=== PATIENT | male | born 1940 | race Caucasian/White ===

== ENCOUNTER 2016-08-23 06:20 | Day surgery (SDC) | payer MEDICARE ==
[~2016-08-23] VITALS: Ht 182.9 cm; Wt 104.8 kg
[~2016-08-23 06:20] MED LIST: ATEN-100 PO; COUM2.5T PO; GABA300C3 PO; LASI20TA PO; LISI-366 PO; NORC7.5T PO; NOVONP2 SQ; REST30CA PO; SIMV20 PO; Z.0.COMMODE-3:1; Z.0.CPM; Z.0.WALKERFRONT
[2016-08-23] MEDS ORDERED: SODIUM CHLOR 0.9% 1000 ML INJ 1,000 ML IV SCH ×2 (06:45→09:51)
[2016-08-23] MEDS ORDERED: SODIUM CHLORIDE 0.9% FLUSH 5 ML FLUSH IV FLUSH PRN (06:45)
[2016-08-23 07:03] VITALS: BP 173/74; PULSE 59; RESP 18; TEMP 98.4; O2SAT 99
[2016-08-23] MEDS ORDERED: NOVONP2 SQ (07:04)
[2016-08-23] MEDS ORDERED: FURO20TA PO (07:04)
[2016-08-23] MEDS ORDERED: ATEN25TA PO (07:04)
[2016-08-23] MEDS ORDERED: TEMA30CA PO (07:04)
[2016-08-23] MEDS ORDERED: SIMV20TA PO (07:04)
[2016-08-23] MEDS ORDERED: LISI40TA PO (07:05)
[2016-08-23] MEDS ORDERED: NITROGLYCERIN INJ 5 ML ONE (08:36)
[2016-08-23] MEDS ORDERED: HEPARIN-NS/PF INJ 500 ML ONE (08:36)
[2016-08-23] MEDS ORDERED: MIDAZOLAM HCL 2 MG/2 ML VIAL ONE ×3 (08:36→09:31)
[2016-08-23] MEDS ORDERED: HEPARIN SODIUM - IV 10,000 UNITS/10 ML VIAL ONE (08:36)
[2016-08-23] MEDS ORDERED: SODIUM CHLORIDE 0.9% FLUSH 5 ML FLUSH IV FLUSH SCH (09:00)
[2016-08-23] MEDS ORDERED: oxyCODONE/ACETAMINOPHEN 5 MG/325 MG TAB PO PRN ×2 (10:00)
[2016-08-23] MEDS ORDERED: LORazepam 2 MG/ML VIAL IV PRN (10:00)
[2016-08-23] MEDS ORDERED: ATROPINE SULFATE 1 MG/ML VIAL IV PRN (10:00)
[2016-08-23] MEDS ORDERED: IOHEXOL 350 MG/ML 100 ML BTL (for Cath Lab) OTHER ONE (10:00)
[2016-08-23] MEDS ORDERED: LIDOCAINE HCL 1% 50 ML VIAL INFIL PRN (10:00)
[2016-08-23] MEDS ORDERED: METOCLOPRAMIDE HCL 10 MG/2 ML VIAL IV PRN (10:00)
[2016-08-23] MEDS ORDERED: BACITRACIN OINT 0.9 GM PKT TOP ONE (10:00)
[2016-08-23] MEDS ORDERED: ONDANSETRON HCL 4 MG/2 ML VIAL IV PRN (10:00)
[2016-08-23] MEDS ORDERED: MISC INFORMATION XX ONE ×2 (10:00)
[2016-08-23] MEDS ORDERED: SODIUM CHLOR 0.9% 250 ML INJ 250 ML IV PRN (10:00)
--- NOTE | 2016-08-23 10:40 | MA ---
cc: SIM ARELLANO MD, SLOBODAN MD DATE: 08/23/2016 PROCEDURE PERFORMED 1. Descending aortography. 2. Bilateral lower extremity peripheral angiography with first, second, third order visualization and interpretation. 3. Intravascular ultrasound assessment of the right superficial femoral artery. METHOD The risks, benefits and alternatives were discussed with the patient. The patient understood and consented to the procedure. The patient was brought into the catheterization lab and placed on the catheterization table. The left groin was prepped and draped in a sterile fashion. The left groin was anesthetized with 2% lidocaine. The left common femoral artery was cannulated. A 5-[place], 11 cm sheath was placed without difficulty. DESCENDING AORTOGRAPHY Descending aortography was performed in anterior and posterior view using a 24 cc contrast injection and good opacification. Descending aortography revealed a large infrarenal aortic aneurysm. The right renal artery has a 75% proximal stenosis. The left renal artery has minor luminal irregularities. PERIPHERAL ANGIOGRAPHY 1. The right common iliac artery has 50% stenosis in the proximal segment. There is a stent present with in-stent restenosis. The external and internal iliac arteries are both tortuous but have only minor luminal irregularities. The right common femoral and profunda arteries are widely patent. The right superficial femoral artery is patent up to the mid to distal segment. The mid to distal segment is heavily calcified. There is a 90% calcific stenosis. There are three small fractured stents present in the midsegment which are intraluminal in appearance. They are very small caliber size and likely represented from embolization from another vessel more proximally or intended for another vessel. The popliteal has minor luminal irregularities. The posterior tibial is occluded. The peroneal has minor luminal irregularities. The anterior tibial has a 90% stenosis proximally. 2. The left common iliac artery has a stent present which appears to be patent. The left internal and external iliacs have minor luminal irregularities. The left common femoral profunda artery has minor luminal irregularities. The left superficial femoral artery has some moderate calcific disease in the distal segment but does not appear to be obstructive. The popliteal is patent, not well-visualized due to prosthesis. The anterior tibial and peroneal vessels appear to be patent. The posterior tibial is occluded. INTRAVASCULAR ULTRASOUND It was not entirely clear what was in the mid right superficial femoral artery and if it was truly intraluminal, therefore we decided to perform intravascular ultrasound. A 0.035 inch, 260 cm stiff angle Glidewire was navigated through a RIM catheter down into the right superficial femoral artery. The RIM catheter was removed. A 6-[place], 45 cm Load DynamiXumo Destination Fisher sheath was then advanced up-and-over the arch into the right superficial femoral artery. A 0.035 inch Trailblazer catheter was then advanced behind it. We were able to navigate the Glidewire down into the distal anterior tibial vessel. A 0.014 inch, 335 cm Viper wire was then navigated down into the distal anterior tibial vessel and the Trailblazer catheter removed. An intravascular ultrasound catheter was then advanced into the right superficial femoral artery. It did appear that there was an intraluminal stent which was nonobstructive in the midsegment of the superficial femoral artery. In the mid to distal segment there was heavy calcium present with a 90% stenosis. The intravascular ultrasound catheter was then removed. The wire was removed. The sheath was then exchanged for a short 11 cm sheath sewn into place to be removed with manual hemostasis. CONCLUSIONS 1. Infrarenal descending aortic aneurysm. 2. Moderate in-stent restenosis within the right common iliac artery stent. The left common iliac artery stent appears to be widely patent. 3. Severe right mid to distal superficial femoral artery stenosis with an apparent small fractured emboli stent. 4. Bilateral infrapopliteal disease which includes occluded posterior tibial arteries. Severe anterior tibial artery stenosis proximally. PLAN We asked Dr. Aubrey Voss, vascular surgeon, for his direct input on the case. Obviously the infrarenal aortic aneurysm will need to be addressed. After discussion we elected not to proceed with any endovascular approach and we will proceed with surgical bypass of the right lower extremity and subsequently address the abdominal aortic aneurysm. Anticipate discharge later today and will put a formal consult in for Dr. Voss. MD PHONG An/ABHISHEK /10:03 AM /10:20 AM
[2016-08-23] MEDS ORDERED: cloNIDine HCL 0.2 MG TAB PO PRN (13:00)
--- NOTE | 2016-08-23 14:52 | MB ---
cc: AUBREY OSBORNE MD DATE OF CONSULTATION: 08/23/2016 REASON FOR CONSULTATION Retained foreign bodies in the right superficial femoral artery. HISTORY OF PRESENT DISEASE This 76-year-old male with multiple medical problems and multiple admissions to this hospital was apparently undergoing angiogram with runoff by Dr. Aly Costello, when I was called emergently to see the patient in the laborer beam house. On the angiogram the patient was found to have an abdominal aortic aneurysm which was not known before apparently and in the runoff of the right leg in the SFA they are arteriosclerotic changes but also some sort of structures that look like small pieces of stents, likely embolized from prior proximal site, hence the urgency of the call. I reviewed the x-rays and then consulted with the patient. The past medical history is complex. PAST MEDICAL/SURGICAL HISTORY 1. Diabetes mellitus. 2. Hyperlipidemia. 3. Hypertension. 4. Laminectomy with Dr. Gonsales, redo of the same. 5. Left knee replacement and redo. 6. Multiple visits to the emergency room. SOCIAL HISTORY The patient denies smoking or drinking. MEDICATIONS He takes several medications which can be found in the record. ALLERGIES No allergies. Language is somewhat of a barrier, but the patient just does not have an organized mode of thinking in order to present his history, so the majority of it is obtained from the old records. PHYSICAL EXAMINATION GENERAL: A 76-year-old male in no acute distress. HEENT: Normocephalic. No trauma to the head. Pupils equally reactive. Extraocular muscles intact. NECK: Bilateral carotid pulses. No bruits. CHEST: Bilateral breath sounds. HEART: Regular rhythm. ABDOMEN: Soft. Active bowel sounds. The aneurysm is actually not palpable. It probably measures 4-5 cm from what I could tell from the angiogram, however, it could not be palpated. EXTREMITIES: The patient has bilateral femoral pulses on palpation. He has popliteal pulses, strong on the left to palpation, on the right by Doppler. Dorsalis pedis and posterior tibial is strong by Doppler. There is a small necrotic area on the top of the second toe on the right. Feet are warm. Capillary refill is normal. IMPRESSION AND RECOMMENDATIONS This gentleman has an abdominal aortic aneurysm which at this point would not be amenable to endovascular repair because he has bilateral iliac stents which clearly preclude introduction of the aortobifemoral graft but also precluded the pulling down of the Y-legs of the endovascular graft. In addition the aneurysm is only about 4 cm in diameter and does not require any treatment at this time. As far as his distal flow is concerned the patient has pretty clean vessels proximally but he does have significant distal disease in the adductor canal and there in the right SFA with some foreign body looking elements, possibly pieces of some stent. At this point this is not causing any blood flow abnormality or is not hemodynamically significant. I will do a CTA with a runoff and then go from there. If the distal narrowing is significant then patient will benefit room balloon angioplasty and placement of the stent and near future I thank you very much for the referral. Aubrey CARRILLO /2:15 PM /2:40 PM MOE
== END 2016-08-23 18:20 | disposition home or self-care (01) ==
LOC: HDOC 06:20 → HDIC 06:21 → HDOC 18:20
PROVIDERS: ATTEND Internal Medicine
DX: I73.9 Peripheral vascular disease, unspecified (principal); I77.1 Stricture of artery; I71.4 Abdominal aortic aneurysm, without rupture; E11.9 Type 2 diabetes mellitus without complications; E78.5 Hyperlipidemia, unspecified; I10 Essential (primary) hypertension; Z79.4 Long term (current) use of insulin
CPT/HCPCS: 36246; 75625; 75716; 85002; 85347; 86850; 86900; 86901; C1751; C1753; C1769; C1893; J1644; J2250; J3010; Q9967

== ENCOUNTER 2016-08-28 08:24 | Inpatient (IN) | payer MEDICARE ==
[2016-08-28] VITALS (7 sets, daily range): BP systolic 120–171; BP diastolic 61–87; PULSE 66–75; RESP 16–20; TEMP 97.1–98.3; O2SAT 97–100
[~2016-08-28] VITALS: Ht 185.4 cm; Wt 105.0 kg
[~2016-08-28 08:24] MED LIST changes: -ATEN-100 PO; +ATEN25TA PO; -COUM2.5T PO; +FURO20TA PO; -GABA300C3 PO; -LASI20TA PO; -LISI-366 PO; +LISI40TA PO; -NORC7.5T PO; -REST30CA PO; -SIMV20 PO; +SIMV20TA PO; +TEMA30CA PO; -Z.0.COMMODE-3:1; -Z.0.CPM; -Z.0.WALKERFRONT
--- NOTE | 2016-08-28 09:42 | PD ---
HPI Chief Complaint: Pain: Acute or Chronic Time Seen by Provider: 09:08 Travel History International Travel<30 days: No Contact w/Intl Traveler<30days: No Traveled to known affect area: No History of Present Illness HPI This is a 76-year-old male with a history of peripheral vascular disease, diabetes mellitus, hypertension, hyperlipidemia, who presents here at the request of his rat culturist for admission. The patient has had a worsening necrotic right second toe for which she was seen by his rat culturist. She was concerned there may be osteomyelitis and requested he be admitted to the hospital and have a consult with her partner Dr. Olivier. The patient denies any fevers, chills. The patient really does not report a lot of pain in his toe. PFSH Past Medical History Arthritis: Yes Blood Disorders: No Cancer: Yes (prostate) Cardiovascular Problems: No High Cholesterol: Yes Chest Pain: No Diabetes: Yes Patient Takes Glucophage: No Endocrine: Yes Gastrointestinal Disorders: No Glaucoma: No Genitourinary: Yes (hx of prostate cancer) Hepatitis: No Hiatal Hernia: No Hypertension: Yes Immune Disorder: No Implanted Vascular Access Dvce: Yes Medical other: Yes (INCREASED CHOLESTROL, ARTHRITIS, LOWER BACK PROBLEMS) Musculoskeletal: Yes (arthritis) Neurologic: No Psychiatric: No Reproductive: No Respiratory: No Integumentary: No Radiation Therapy: Yes (SEED IMPLANT) Thyroid Disease: No Past Surgical History Abdominal Surgery: No Body Medical Devices: PENILE IMPLANT Cardiac Surgery: No Ear Surgery: No Endocrine Surgery: No Eye Surgery: Yes (VEE CATARACT SX) Genitourinary Surgery: Yes (SEED IMPLANT, PENILE IMPLANT) Gynecologic Surgery: No Joint Replacement: Yes (left knee replacement) Neurologic Surgery: No Oral Surgery: No Pacemaker: No Thoracic Surgery: No Other Surgery: Yes (LEFT KNEE) Social History Alcohol Use: No Tobacco Use: No Substance Use: No Allergies-Medications (Allergen,Severity, Reaction): Coded Allergies: No Known Allergies (Verified , 08/28/16) Reported Meds & Prescriptions Reported Meds & Active Scripts Active Reported Lisinopril 40 Mg Tab 40 Mg PO DAILY Novolin N Inj (Insulin Human NPH) 1,000 Unit/10 Ml Vial 25 Units SQ BID Simvastatin 20 Mg Tab 20 Mg PO DAILY Atenolol 25 Mg Tab 25 Mg PO DAILY Review of Systems Except as stated in HPI: all other systems reviewed are Neg General / Constitutional: No: Fever, Chills HENT: No: Headaches, Lightheadedness Cardiovascular: No: Chest Pain or Discomfort, Palpitations Respiratory: No: Cough, Shortness of Breath Gastrointestinal: No: Nausea, Vomiting, Abdominal Pain Genitourinary: No: Frequency, Dysuria Musculoskeletal: Positive: Pain (black coloration to right second distal toe), No: Edema Skin: Positive Lesions (right distal toe discoloration) Neurologic: No: Weakness, Dizziness Endocrine: No: Polyuria, Polydipsia Physical Exam Narrative GENERAL: Well-nourished, well-developed patient resting comfortably on the stretcher. SKIN: Warm and dry. HEAD: Normocephalic/atraumatic. EYES: No scleral icterus. No injection or drainage. NECK: Supple, trachea midline. CARDIOVASCULAR: Regular rate and rhythm without murmurs, gallops, or rubs. RESPIRATORY: Breath sounds equal bilaterally. No accessory muscle use. GASTROINTESTINAL: Abdomen soft, non-tender, nondistended. MUSCULOSKELETAL: On examination patient's right foot, he has necrosis and dried ulceration on the distal tip of his right second toe. Cap refill is delayed at 3 seconds on his great toe. Left foot shows no evidence of ulcerations or lesions at this time. NEUROLOGICAL: Awake and alert. Cranial nerves II through XII intact. Motor grossly within normal limits. Five out of 5 muscle strength in all muscle groups. Normal speech. Data Data Last Documented VS Vital Signs Date Time Temp Pulse Resp B/P Pulse Ox O2 Delivery O2 Flow Rate FiO2 08/28/16 09:38 18 98 Room Air 08/28/16 08:50 75 08/28/16 08:50 98.3 120/65 Orders Complete Blood Count With Diff (08/28/16 09:30) Comprehensive Metabolic Panel (08/28/16 09:30) Prothrombin Time / Inr (Pt) (08/28/16 09:30) Act Partial Throm Time (Ptt) (08/28/16 09:30) Westergren Sedimentation Rate (08/28/16 09:30) Iv Access Insert/Monitor (08/28/16 09:30) Ecg Monitoring (08/28/16 09:30) Oximetry (08/28/16 09:30) Consult Podiatry (08/28/16 ) (Hub Use Only)Inp Phy Cons/Ref (08/28/16 ) Diet 1999 Ada Cons Carb (08/28/16 Breakfast) Admit Order (Ed Use Only) (08/28/16 10:51) Mri Foot W&W/O Contrast (08/28/16 ) Labs Laboratory Tests Test 08/28/16 09:56 White Blood Count 7.0 TH/MM3 Red Blood Count 4.20 MIL/MM3 Hemoglobin 12.9 GM/DL Hematocrit 37.6 % Mean Corpuscular Volume 89.5 FL Mean Corpuscular Hemoglobin 30.6 PG Mean Corpuscular Hemoglobin 34.2 % Concent Red Cell Distribution Width 13.9 % Platelet Count 206 TH/MM3 Mean Platelet Volume 8.9 FL Neutrophils (%) (Auto) 72.1 % Lymphocytes (%) (Auto) 15.8 % Monocytes (%) (Auto) 8.9 % Eosinophils (%) (Auto) 2.6 % Basophils (%) (Auto) 0.6 % Neutrophils # (Auto) 5.0 TH/MM3 Lymphocytes # (Auto) 1.1 TH/MM3 Monocytes # (Auto) 0.6 TH/MM3 Eosinophils # (Auto) 0.2 TH/MM3 Basophils # (Auto) 0.0 TH/MM3 CBC Comment DIFF FINAL Differential Comment Erythrocyte Sedimentation Rate 63 mm/hr Prothrombin Time 11.1 SEC Prothromb Time International 1.0 RATIO Ratio Activated Partial 27.5 SEC Thromboplast Time Sodium Level 140 MEQ/L Potassium Level 5.5 MEQ/L Chloride Level 102 MEQ/L Carbon Dioxide Level 28.6 MEQ/L Anion Gap 9 MEQ/L Blood Urea Nitrogen 24 MG/DL Creatinine 1.05 MG/DL Estimat Glomerular Filtration 68 ML/MIN Rate Random Glucose 39 MG/DL Calcium Level 9.3 MG/DL Total Bilirubin 0.6 MG/DL Aspartate Amino Transf 43 U/L (AST/SGOT) Alanine Aminotransferase 26 U/L (ALT/SGPT) Alkaline Phosphatase 68 U/L Total Protein 7.9 GM/DL Albumin 3.6 GM/DL [facility] Medical Decision Making Medical Screen Exam Complete: Yes Emergency Medical Condition: Yes Differential Diagnosis Osteomyelitis versus ulceration versus dry gangrene versus cellulitis Narrative Course 76 year-old gentleman with history of diabetes mellitus, peripheral vessel disease, who presents from home with a note from Dr. tani nova for admission. The patient has a necrotic right second toe. The concern was for osteomyelitis. Labs and MRI of been ordered here. The patient was very angry that he was not being fed and stated that he was thinking about leaving. I informed him that I would order him a tray however this did mean that if he were to have surgery scheduled today they may not be a little do that. The case is been discussed with Dr. Elpidio Preciado, on-call for healthcare hospitalist, who will be the admitting physician. Diagnosis Primary Impression: right second toe necrosis Additional Impressions: HTN (hypertension) DM (diabetes mellitus) Emory Ordoñez MD Aug 28, 2016 09:42
[2016-08-28 10:15] LABS: BASOPHIL % 0.6 % (0.0-2.0); EOSINOPHIL # 0.2 TH/MM3 (0-0.4); EOSINOPHIL % 2.6 % (0.0-4.0); HEMATOCRIT 37.6 % (39.0-51.0); HEMO FLAGS DIFF FINAL; LYMPH % 15.8 % (9.0-44.0); LYMPHOCYTE # 1.1 TH/MM3 (1.0-4.8); MEAN CELL VOLUME 89.5 FL (80.0-100.0); MEAN CORPUSCULAR HEMOGLOBIN 30.6 PG (27.0-34.0); MEAN CORPUSCULAR HGB CONC 34.2 % (32.0-36.0); MONO % 8.9 % (0.0-8.0); NEUT % 72.1 % (16.0-70.0); PLATELET COUNT 206 TH/MM3 (150-450); RED CELL DISTRIBUTION WIDTH 13.9 % (11.6-17.2)
[2016-08-28 10:25] LABS: APTT (PATIENT) 27.5 SEC (24.3-30.1); PROTHROMBIN TIME - PATIENT 11.1 SEC (9.8-11.6)
[2016-08-28 10:49] LABS: ALKALINE PHOSPHATASE 68 U/L (45-117); ALT (GPT) 26 U/L (12-78); ANION GAP 9 MEQ/L (5-15); AST (GOT) 43 U/L (15-37); BICARBONATE 28.6 MEQ/L (21.0-32.0); BLOOD UREA NITROGEN 24 MG/DL (7-18); CHLORIDE 102 MEQ/L (98-107); GLOMERULAR FILTRATION RATE 68 ML/MIN (>89); SODIUM (NA) 140 MEQ/L (136-145); TOTAL BILIRUBIN ADULT 0.6 MG/DL (0.2-1.0)
[2016-08-28 10:50] LABS: POTASSIUM 5.5 MEQ/L (3.5-5.1)
[2016-08-28] MEDS ORDERED: GADODIAMIDE PF 287 MG/ML 20 ML VIAL (for RAD MRI) IV ONE (11:48)
--- NOTE | 2016-08-28 12:17 | HHI.HP ---
HPI Service [facility] Hospitalists Primary Care Physician Deepak Good MD Admission Diagnosis right necrotic great toe, DM, Hyperlipidemia, HTN, PVD Chief Complaint: Osteomyelitis Travel History International Travel<30 Days: No Contact w/Intl Traveler <30 Da: No Traveled to Known Affected Are: No History of Present Illness Mr. Longo is a 76 y/o male with IDDM with peripheral neuropathy, HTN , hyperlipidemia, peripheral vascular disease, and hx of prostate cancer who presented to the ED at [facility] on 08/28/16 at the request of his ammonium sulfate operator for admission. The patient has had a worsening necrotic right second toe for which she was seen by his ammonium sulfate operator. She was concerned there may be osteomyelitis and requested he be admitted to the hospital and have a consult with her partner Dr. Olivier. Pt had an MRI of the foot in the ED which revealed soft tissue ulceration distally of the second toe with destruction/osteomyelitis of the distal phalanx with focal osteomyelitis involving the head of the second toe middle phalanx as well. Pt was also noted to be hypoglycemic in the ED with blood glucose of 39. This has improved to 105 after food intake. The patient denies any pain, fevers/chills, chest pain, SOB, palpitations, dizziness or weakness. Review of Systems Constitutional: DENIES: Fever, Chills Eyes: DENIES: Vision loss Ears, nose, mouth, throat: DENIES: Hearing loss Respiratory: DENIES: Cough, Shortness of breath Cardiovascular: DENIES: Chest pain, Palpitations Gastrointestinal: DENIES: Abdominal pain, Nausea, Vomiting Genitourinary: DENIES: Hematuria, Dysuria Musculoskeletal: DENIES: Back pain Integumentary: COMPLAINS OF: Abnormal pigmentation Neurologic: DENIES: Headache Psychiatric: DENIES: Confusion Past Family Social History Past Medical History Diabetes mellitus, insulin dependent Peripheral neuropathy Diabetic retinopathy AAA HTN Hyperlipidemia Hx of prostate cancer PVD Chronic back pain Past Surgical History Cataract surgery Left TKA in 2009 Dr Tamayo Left total knee revision in 08/[address] Beach Penile prosthesis Reported Medications - Lisinopril 40 Mg PO DAILY - Novolin N Inj 25 Units SQ BID - Simvastatin 20 Mg PO DAILY - Atenolol 25 Mg PO DAILY ?Lasix 20mg PO DAILY ?Gabapentin 300Mg PO TID ?Hydrocodone-APAP 7.5-325Mg PO TID PRN ?Temazepam 30Mg PO HS PRN Allergies: Coded Allergies: No Known Allergies (Verified , 08/28/16) Family History Noncontributory Social History Denies any tobacco, alcohol or illicit drug use Physical Exam Vital Signs Vital Signs Date Time Temp Pulse Resp B/P Pulse Ox O2 Delivery O2 Flow Rate FiO2 08/28/16 09:38 18 98 Room Air 08/28/16 08:50 75 18 08/28/16 08:50 98.3 71 18 120/65 97 Room Air Physical Exam GENERAL: This is a well-nourished, well-developed patient, in no apparent distress. HEENT: Atraumatic. Normocephalic. No temporal or scalp tenderness. No scleral icterus. Airway patent. NECK: Trachea midline, supple, nontender. CARDIO: Regular. RESP: CTA bilaterally. No wheezes, rales, or rhonchi. ABD: +BS, soft, non-tender, nondistended. EXT: Extremities without clubbing, cyanosis, or edema. right 2nd distal toe necrotic. NEURO: Awake and alert. Motor and sensory grossly within normal limits. Normal speech. Laboratory Laboratory Tests Test 08/28/16 09:56 White Blood Count 7.0 Red Blood Count 4.20 Hemoglobin 12.9 Hematocrit 37.6 Mean Corpuscular Volume 89.5 Mean Corpuscular Hemoglobin 30.6 Mean Corpuscular Hemoglobin 34.2 Concent Red Cell Distribution Width 13.9 Platelet Count 206 Mean Platelet Volume 8.9 Neutrophils (%) (Auto) 72.1 Lymphocytes (%) (Auto) 15.8 Monocytes (%) (Auto) 8.9 Eosinophils (%) (Auto) 2.6 Basophils (%) (Auto) 0.6 Neutrophils # (Auto) 5.0 Lymphocytes # (Auto) 1.1 Monocytes # (Auto) 0.6 Eosinophils # (Auto) 0.2 Basophils # (Auto) 0.0 CBC Comment DIFF FINAL Differential Comment Erythrocyte Sedimentation Rate 63 Prothrombin Time 11.1 Prothromb Time International 1.0 Ratio Activated Partial 27.5 Thromboplast Time Sodium Level 140 Potassium Level 5.5 Chloride Level 102 Carbon Dioxide Level 28.6 Anion Gap 9 Blood Urea Nitrogen 24 Creatinine 1.05 Estimat Glomerular Filtration 68 Rate Random Glucose 39 Calcium Level 9.3 Total Bilirubin 0.6 Aspartate Amino Transf 43 (AST/SGOT) Alanine Aminotransferase 26 (ALT/SGPT) Alkaline Phosphatase 68 Total Protein 7.9 Albumin 3.6 Result Diagram: 08/28/1656 08/28/1656 Assessment and Plan Problem List: (1) Osteomyelitis Status: Acute Plan: - Pt sent to the ED by Podiatry for right 2nd foot nonhealing ulceration and possible osteomyelitis. -Pt says 2 weeks ago he was filing off callus under his foot/toes. caused some bleeding then he noticed ulceration and then necrotic tip on 2nd toe. -Last week patient had angiogram with dr Costello and found to have an Infrarenal descending aortic aneurysm. Moderate in-stent restenosis within the right common iliac artery stent. The left common iliac artery stent appears to be widely patent. Severe right mid to distal superficial femoral artery stenosis with an apparent small fractured emboli stent. Bilateral infrapopliteal disease which includes occluded posterior tibial arteries. Severe anterior tibial artery stenosis proximally. - MRI right foot (08/28) --> soft tissue ulceration distally of the second toe with destruction/osteomyelitis of the distal phalanx with focal osteomyelitis involving the head of the second toe middle phalanx as well. - Podiatry has been consulted and they consulted Vascular. -Will await surgical decisions. (2) Non-healing open wound of toe Status: Chronic Plan: - See above. (3) DM (diabetes mellitus) Status: Chronic Plan: - Pt was hypoglycemic at admission but blood sugar has improved. - Low dose NovoLog SSI - Accu checks (4) HTN (hypertension) Status: Chronic Plan: - Resume Atenolol - Hold Lisinopril due to hyperkalemia (5) H/O prostate cancer Status: Chronic (6) Chronic lumbar radiculopathy Status: Chronic Physician Certification 2 Midnight Certification Type: Admission for Inpatient Services Order for Inpatient Services 3The services are ordered in accordance with Medicare regulations or non- Medicare payer requirements, as applicable. In the case of services not specified as inpatient-only, they are appropriately provided as inpatient services in accordance with the 2-midnight benchmark. Estimated LOS (days): 3 3 days is the estimated time the patient will need to remain in the hospital, assuming treatment plan goals are met and no additional complications. Post-Hospital Plan: Home Meghan Lynn Aug 28, 2016 12:17 Elpidio Preciado MD Aug 28, 2016 15:56
--- NOTE | 2016-08-28 12:24 | RADRPT ---
EXAM DATE/TIME: 08/28/2016 11:19 [facility] COMPARISON: No previous studies available for comparison. INDICATIONS : Osteomyelitis. Right second toe discolored with wound. CONTRAST: 20 cc Omniscan (gadodiamide) IV MEDICAL HISTORY : Hypertension. Diabetes mellitus type 2. SURGICAL HISTORY : Total knee replacement, left. Discectomy, lumbar. ENCOUNTER: Initial ACUITY: 2 weeks PAIN SCORE: 0/10 LOCATION: Right foot. TECHNIQUE: Multiplanar, multisequence MRI examination was performed without contrast and after the intravenous a dministration of gadolinium. FINDINGS: Correlative x-rays are pending. Soft tissues distally the second toe are ulcerated and the distal pha lanx is exposed. About half of the distal phalanx appears to be missing and there are signal changes within the rest of the distal phalanx typical of osteomyelitis. Focal osteomyelitis also suspected of the head of the middle phalanx. There is marrow edema in the proximal phalanx but no evidence of ost eomyelitis. Reactive appearing soft tissue enhancement seen in the second toe and there is fairly generalized mid foot and forefoot subcutaneous edema. No drainable abscesses are demonstrated. Degenerative changes of the interphalangeal joint of the great toe noted and with cystic change of th e head of the proximal phalanx. There is osteoarthritis of the sesamoids and reactive appearing marro w edema/enhancement of the fibular sesamoid. CONCLUSION: Soft tissue ulceration distally of the second toe with destruction/osteomyelitis of the distal phalan x. There is focal osteomyelitis involving the head of the second toe middle phalanx as well. Inocente Ferrell MD on August 28, 2016 at 12:15 Board Certified Radiologist. This report was verified electronically.
[2016-08-28] MEDS ORDERED: ONDANSETRON HCL 4 MG/2 ML VIAL IV PRN (12:45)
--- NOTE | 2016-08-28 12:46 | RADRPT ---
EXAM DATE/TIME: 08/28/2016 12:24 [facility] COMPARISON: No previous studies available for comparison. INDICATIONS : Right 2nd toe unhealing wound. MEDICAL HISTORY : None. SURGICAL HISTORY : None. ENCOUNTER: Initial ACUITY: 2 weeks PAIN SCORE: 7/10 LOCATION: Right 2nd toe FINDINGS: The tuft of the second toe distal phalanx is completely resorbed. A prominent soft tissue defect exte nds down to the bony surface of the remaining proximal bone fragment. The middle phalanx and proximal phalanx. Tach and unremarkable. The other toes are grossly intact. There is mild arthritic change mo st notably at the first MTP joint. A small plantar heel spur is present. There are vascular calcifica tions in the soft tissues. CONCLUSION: Second toe distal phalangeal tuft is resorbed consistent with advanced osteomyelitis. The proximal an d middle phalanx are intact. Inocente Lazo MD on August 28, 2016 at 12:43 Board Certified Radiologist. This report was verified electronically.
[2016-08-28] MEDS: ACETAMINOPHEN 325 MG TAB PO PRN ×3 (13:24→21:40)
[2016-08-28] MEDS ORDERED: INSULIN ASPART SUPPLEMENTAL SCALE SQ SCH (16:00)
--- NOTE | 2016-08-28 16:06 | PD.CONS ---
History of Present Illness Service podiatry Consult Requested By ED Reason for Consult R 2nd toe osteomyelitis Primary Care Physician Deepak Good MD Diagnoses: History of Present Illness Mr. Longo is a 76 y/o male with history of nonhealing wound R 2nd toe. He was seen by Dr Shepherd yesterday in clinic and sent to ED for admission due to bone sticking out of the distal toe. Past Family Social History Allergies: Coded Allergies: No Known Allergies (Verified , 08/28/16) Past Medical History Diabetes mellitus, insulin dependent Peripheral neuropathy Diabetic retinopathy AAA HTN Hyperlipidemia Hx of prostate cancer PVD Chronic back pain Past Surgical History Cataract surgery Left TKA in 2009 Dr Tamayo Left total knee revision in 08/[address] Beach Penile prosthesis Active Ordered Medications Current Medications Medications (Trade) Dose Ordered Sig/Tj Route Start Time Stop Time Status Last Admin (Tylenol) 650 mg Q4H PRN PO 08/28/16 12:45 08/28/16 13:24 (Zofran Inj) 4 mg Q6H PRN IV 08/28/16 12:45 (Tenormin) 25 mg DAILY PO 08/29/16 09:00 (Pravachol) 40 mg DAILY PO 08/29/16 09:00 (Catapres) 0.1 mg Q6H PRN PO 08/28/16 14:15 Family History Noncontributory Social History Denies any tobacco, alcohol or illicit drug use Physical Exam Vital Signs Vital Signs Date Time Temp Pulse Resp B/P Pulse Ox O2 Delivery O2 Flow Rate FiO2 08/28/16 15:20 16 08/28/16 13:00 97.7 71 16 151/87 100 08/28/16 12:42 75 18 124/61 99 Room Air 08/28/16 09:38 18 98 Room Air 08/28/16 08:50 75 18 08/28/16 08:50 98.3 71 18 120/65 97 Room Air Physical Exam R foot distal 2nd toe with exposed bone to tip of toe. Edema and erythema locally. Painful to palpation. Thin atrophic skin Laboratory Laboratory Tests Test 08/28/16 09:56 White Blood Count 7.0 Red Blood Count 4.20 Hemoglobin 12.9 Hematocrit 37.6 Mean Corpuscular Volume 89.5 Mean Corpuscular Hemoglobin 30.6 Mean Corpuscular Hemoglobin 34.2 Concent Red Cell Distribution Width 13.9 Platelet Count 206 Mean Platelet Volume 8.9 Neutrophils (%) (Auto) 72.1 Lymphocytes (%) (Auto) 15.8 Monocytes (%) (Auto) 8.9 Eosinophils (%) (Auto) 2.6 Basophils (%) (Auto) 0.6 Neutrophils # (Auto) 5.0 Lymphocytes # (Auto) 1.1 Monocytes # (Auto) 0.6 Eosinophils # (Auto) 0.2 Basophils # (Auto) 0.0 CBC Comment DIFF FINAL Differential Comment Erythrocyte Sedimentation Rate 63 Prothrombin Time 11.1 Prothromb Time International 1.0 Ratio Activated Partial 27.5 Thromboplast Time Sodium Level 140 Potassium Level 5.5 Chloride Level 102 Carbon Dioxide Level 28.6 Anion Gap 9 Blood Urea Nitrogen 24 Creatinine 1.05 Estimat Glomerular Filtration 68 Rate Random Glucose 39 Calcium Level 9.3 Total Bilirubin 0.6 Aspartate Amino Transf 43 (AST/SGOT) Alanine Aminotransferase 26 (ALT/SGPT) Alkaline Phosphatase 68 Total Protein 7.9 Albumin 3.6 Result Diagram: 08/28/16 0956 08/28/16 0956 Imaging Last Impressions Foot X-Ray 08/28/16 0000 Signed Impressions: Service Date/Time: Sunday, August 28, 2016 12:24 - CONCLUSION: Second toe distal phalangeal tuft is resorbed consistent with advanced osteomyelitis. The proximal and middle phalanx are intact. Inocente Lazo MD Foot MRI 08/28/16 0000 Signed Impressions: Service Date/Time: Sunday, August 28, 2016 11:19 - CONCLUSION: Soft tissue ulceration distally of the second toe with destruction/osteomyelitis of the distal phalanx. There is focal osteomyelitis involving the head of the second toe middle phalanx as well. Inocente Ferrell MD Assessment and Plan Assessment and Plan Osteomyelitis R 2nd toe Plan for amputation R 2nd toe when cleared by vascular. Aminta Olivier DPM Aug 28, 2016 16:06
--- NOTE | 2016-08-28 16:55 | PD.CAR.PN ---
CVT Progress Note Subjective/Hospital Course: Consult received Full consultation to follow CTA with runoff ordered. Patient does have abdominal aortic aneurysm and has bilateral iliac stents I have seen patient in the Lab at the request of Dr. newton last week and patient was supposed to follow with my office but now that he is here we'll go ahead with a CTA runoff and then go from there Podiatry may proceed with any scheduled surgery today or tomorrow for this will be unrelated to what I do Full consult to follow Thanks Naye Objective: Vital Signs Date Time Temp Pulse Resp B/P Pulse Ox O2 Delivery O2 Flow Rate FiO2 08/28/16 15:35 98.3 66 16 149/76 99 08/28/16 15:20 16 08/28/16 13:00 97.7 71 16 151/87 100 08/28/16 12:42 75 18 124/61 99 Room Air 08/28/16 09:38 18 98 Room Air 08/28/16 08:50 75 18 08/28/16 08:50 98.3 71 18 120/65 97 Room Air Labs: Laboratory Tests Test 08/28/16 09:56 White Blood Count 7.0 TH/MM3 (4.0-11.0) Red Blood Count 4.20 MIL/MM3 (4.50-5.90) Hemoglobin 12.9 GM/DL (13.0-17.0) Hematocrit 37.6 % (39.0-51.0) Mean Corpuscular Volume 89.5 FL (80.0-100.0) Mean Corpuscular Hemoglobin 30.6 PG (27.0-34.0) Mean Corpuscular Hemoglobin 34.2 % Concent (32.0-36.0) Red Cell Distribution Width 13.9 % (11.6-17.2) Platelet Count 206 TH/MM3 (150-450) Mean Platelet Volume 8.9 FL (7.0-11.0) Neutrophils (%) (Auto) 72.1 % (16.0-70.0) Lymphocytes (%) (Auto) 15.8 % (9.0-44.0) Monocytes (%) (Auto) 8.9 % (0.0-8.0) Eosinophils (%) (Auto) 2.6 % (0.0-4.0) Basophils (%) (Auto) 0.6 % (0.0-2.0) Neutrophils # (Auto) 5.0 TH/MM3 (1.8-7.7) Lymphocytes # (Auto) 1.1 TH/MM3 (1.0-4.8) Monocytes # (Auto) 0.6 TH/MM3 (0-0.9) Eosinophils # (Auto) 0.2 TH/MM3 (0-0.4) Basophils # (Auto) 0.0 TH/MM3 (0-0.2) CBC Comment DIFF FINAL Differential Comment Erythrocyte Sedimentation Rate 63 mm/hr (0-20) Prothrombin Time 11.1 SEC (9.8-11.6) Prothromb Time International 1.0 RATIO Ratio Activated Partial 27.5 SEC Thromboplast Time (24.3-30.1) Sodium Level 140 MEQ/L (136-145) Potassium Level 5.5 MEQ/L (3.5-5.1) Chloride Level 102 MEQ/L (98-107) Carbon Dioxide Level 28.6 MEQ/L (21.0-32.0) Anion Gap 9 MEQ/L (5-15) Blood Urea Nitrogen 24 MG/DL (7-18) Creatinine 1.05 MG/DL (0.60-1.30) Estimat Glomerular Filtration 68 ML/MIN (>89) Rate Random Glucose 39 MG/DL (74-106) Calcium Level 9.3 MG/DL (8.5-10.1) Total Bilirubin 0.6 MG/DL (0.2-1.0) Aspartate Amino Transf 43 U/L (15-37) (AST/SGOT) Alanine Aminotransferase 26 U/L (12-78) (ALT/SGPT) Alkaline Phosphatase 68 U/L (45-117) Total Protein 7.9 GM/DL (6.4-8.2) Albumin 3.6 GM/DL (3.4-5.0) Result Diagram: 08/28/16 0956 08/28/16 0956 Aubrey Voss MD Aug 28, 2016 16:55
[2016-08-28] MEDS ORDERED: IOHEXOL 350 MG/ML 10 ML VIAL (for RAD DIAG) IV ONE (18:09)
[2016-08-28] MEDS: cloNIDine HCL 0.1 MG TAB PO PRN ×2 (19:38→19:40)
[2016-08-28] MEDS ORDERED: GLUCAGON 1 MG/ML VIAL OTHER PRN (20:45)
[2016-08-28] MEDS ORDERED: DEXTROSE 50% IN WATER 50 ML VIAL(D50) IV PUSH PRN (20:45)
[2016-08-28] MEDS: INSULIN ASPART SUPPLEMENTAL SCALE SQ SCH (21:00)
--- NOTE | 2016-08-28 23:18 | RADRPT ---
EXAM DATE/TIME: 08/28/2016 17:56 [facility] COMPARISON: No previous studies available for comparison. INDICATIONS : Evaluate for right leg occlusion. Necrotic great toe. IV CONTRAST: 100 cc Omnipaque 350 (iohexol) IV RADIATION DOSE: 12.45 CTDIvol (mGy) MEDICAL HISTORY : Cardiovascular disease. Hypertension. Diabetes mellitus type 2.Prostate cancer SURGICAL HISTORY : Total knee replacement, left. ENCOUNTER: Initial ACUITY: 1 day PAIN SCALE: 0/10 LOCATION: Right leg TECHNIQUE: Volumetric scanning was performed using a multi-row detector CT scanner. The data was post processed with a variety of visualization algorithms including full volume maximum intensity projection, multi -planar sliding thin slab reformation, curved planar reformation, and surface rendering techniques. Using automated exposure control and adjustment of the mA and/or kV according to patient size, radiat ion dose was kept as low as reasonably achievable to obtain optimal diagnostic quality images. FINDINGS: ABDOMINAL AORTA: Atherosclerotic irregularity with a 3.9 cm infrarenal abdominal aortic aneurysm. Single bilateral sha al arteries are patent. 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 PELVIS: Dense calcification at the origin of both iliac. Patent stent in the ostium of the left common iliac. There is some atherosclerotic irregularity the origin of the right common iliac and both iliac syste ms appear to be patent bilaterally. RIGHT LEG: Profunda and SFA are patent at the origin. There is dense calcification just above the adductor hiatu s in the SFA which probably results in a significant stenosis. Scattered stenoses are identified in t he above knee popliteal but the popliteal is patent down to the trifurcation vessels with the dominan t runoff the peroneal. Stenosis in the anterior tibial proximally but the vessel is patent into the f oot. Posterior tibial occludes proximally. LEFT LEG: Profunda and SFA are patent. There is some atherosclerotic calcification of the above-knee popliteal. The juxta-articular popliteal is obscured by beam hardening artifact from the knee prostheses. Mild segmental stenosis in the qkhur-vol-hlft popliteal but the vessel is patent down to the trifurcation with 2 vessel runoff via the anterior tibial and peroneal MISCELLANEOUS: Small gallstones. 3 cm diverticulum off the second portion of the duodenum. Nonobstructing 2 mm calcu ellie in the lower pole collecting system of the left kidney. Prosthetic seeds in the prostate bed. Pat ient has a penile prostheses. CONCLUSION: 1. Inflow appears to be adequate down to the common femoral bilaterally. Left common iliac artery david nt is patent. 2. Dense calcification in the distal right SFA and quuep-etz-etpy popliteal with suspected high-grade stenoses in these distribution. This is probably flow-limiting to the runoff vessels. Dominant runof f of the peroneal with high-grade stenosis in the proximal anterior tibial which is otherwise patent into the foot. 3. On the left, atherosclerotic irregularity of the distal SFA and popliteal but the vessels are ureña nt down to the trifurcation with 2 vessel runoff via the anterior tibial and peroneal. 4. Cholelithiasis. 5. 3.9 cm infrarenal abdominal aortic aneurysm. 6. 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 Mal Iraheta MD on August 28, 2016 at 23:00 Board Certified Radiologist. This report was verified electronically.
[2016-08-29] VITALS: BP 130/59; PULSE 65; RESP 18; TEMP 98
[2016-08-29 04:00] VITALS: BP 137/62; PULSE 69; RESP 18; TEMP 98.6; O2SAT 94
[2016-08-29] MEDS ORDERED: INSULIN HUMAN REGULAR 1,000 UNITS/10 ML VIAL SQ PRN (05:45)
[2016-08-29] MEDS: INSULIN ASPART SUPPLEMENTAL SCALE SQ SCH ×4 (07:00→21:00)
[2016-08-29] MEDS ORDERED: BUPIVACAINE HCL PF 0.5% 30 ML VIAL ONE (07:19)
[2016-08-29] MEDS ORDERED: LIDOCAINE HCL 2% 50 ML VIAL ONE (07:19)
[2016-08-29] MEDS ORDERED: ceFAZolin 2 GM PREMIX 50 ML ONE (07:43)
[2016-08-29] MEDS ORDERED: FAMOTIDINE 20 MG/2 ML VIAL ONE (07:51)
[2016-08-29] MEDS ORDERED: MIDAZOLAM HCL 2 MG/2 ML VIAL ONE (07:51)
--- NOTE | 2016-08-29 07:57 | HHI.PR ---
Immediate Post Op Note Procedure Date: Aug 29, 2016 Pre Op Diagnosis: osteomyelitis R 2nd toe Post Op Diagnosis: same Surgeon: Aminta Olivier DPM [employer] Drafter(s): Staff Procedure: Amputation R 2nd toe Findings: Consistent with diagnosis. Distal aspect of toe with bone exposed and positive MRI findings consistent with osteomyelitis to distal and middle phalanges of R 2nd toe. Amputation at MTP joint in disarticulation. Clean white cartilage cap noted to 2nd met head. No marcin purulence noted. Irrigation and culture taken of residual wound prior to primary closure. Closure with 2-0 nylon, followed by xeroform, 4x4, abd, cast padding, lala. Heel touch weight bearing in surgical shoe R foot only for transfers and short distances. PT to eval and treat. Await cultures and vascular plan before d/c. Additional Information: 2g Ancef IV Complications: none Specimen(s) removed: R 2nd toe Culture R foot Estimated blood loss: Minimal Anesthesia: TIVA, Local (10mL 2% lidocaine plain) Drains: None IVF Tourniquet time (min at mmHg) n/a Patient to: PACU Patient Condition: Good Date/Time of Procedure: SEE SURGICAL CARE RECORD Aminta Olivier DPM Aug 29, 2016 07:57
[2016-08-29] MEDS ORDERED: LISINOPRIL 20 MG TAB PO SCH (09:00)
[2016-08-29] MEDS ORDERED: DO NOT ADM ANY ANTICOAGULANT DRUGS XX PRN ×2 (09:30→10:15)
[2016-08-29] MEDS: PRAVASTATIN SOD 40 MG TAB PO SCH (09:35)
[2016-08-29] MEDS: ATENOLOL 25 MG TAB PO SCH (09:35)
[2016-08-29] MEDS: ACETAMINOPHEN 325 MG TAB PO PRN (09:42)
[2016-08-29 09:53] VITALS: BP 161/70; PULSE 68; RESP 16; TEMP 97; O2SAT 96
--- NOTE | 2016-08-29 10:00 | RADRPT ---
EXAM DATE/TIME: 08/29/2016 09:02 [facility] COMPARISON: FOOT RIGHT COMPLETE (ESL0OXS), August 28, 2016, 12:24. INDICATIONS : Right 2nd toe removal. MEDICAL HISTORY : None. SURGICAL HISTORY : None. ENCOUNTER: Initial ACUITY: 4 - 6 days PAIN SCORE: 6/10 LOCATION: Right 2nd toe FINDINGS: Compare August 28. The right second toe has been amputated. No new fracture or dislocation. No unexpect ed radiopaque foreign bodies. CONCLUSION: 1. Amputation of right second toe. No complications identified. Zaheer Tang MD on August 29, 2016 at 9:57 Board Certified Radiologist. This report was verified electronically.
--- NOTE | 2016-08-29 10:04 | HHI.PR ---
Subjective Remarks s/p 2nd toe amputation in room. has some surgical pain. asking to go home already Objective Vitals heent neg heart reg lung cta abd s/nt ext right food bandaged Vital Signs Date Time Temp Pulse Resp B/P Pulse Ox O2 Delivery O2 Flow Rate FiO2 08/29/16 09:53 97.0 68 16 161/70 96 08/29/16 09:15 98.7 66 16 151/73 98 Room Air 08/29/16 09:00 65 16 145/71 98 Room Air 08/29/16 08:45 78 16 134/71 97 Room Air 08/29/16 08:32 99.2 80 16 147/75 97 Room Air 08/29/16 04:00 98.6 69 18 137/62 94 08/29/16 00:00 98.0 65 18 130/59 08/28/16 22:40 0 08/28/16 20:00 97.1 66 20 146/67 97 08/28/16 19:30 97.5 68 16 171/87 99 08/28/16 15:35 98.3 66 16 149/76 99 08/28/16 13:00 97.7 71 16 151/87 100 08/28/16 12:42 75 18 124/61 99 Room Air 08/28/16 08/28/16 08/29/16 15:00 23:00 07:00 Intake Total 120 ml 240 ml Balance 120 ml 240 ml Intake Oral 120 ml 240 ml # Voids 3 Result Diagram: 08/28/16 0956 08/28/16 0956 A/P Problem List: (1) Osteomyelitis Status: Acute Plan: - Pt sent to the ED by Podiatry for right 2nd foot nonhealing ulceration and possible osteomyelitis. -Pt says 2 weeks ago he was filing off callus under his foot/toes. caused some bleeding then he noticed ulceration and then necrotic tip on 2nd toe. -Last week patient had angiogram with dr Costello and found to have an Infrarenal descending aortic aneurysm. Moderate in-stent restenosis within the right common iliac artery stent. The left common iliac artery stent appears to be widely patent. Severe right mid to distal superficial femoral artery stenosis with an apparent small fractured emboli stent. Bilateral infrapopliteal disease which includes occluded posterior tibial arteries. Severe anterior tibial artery stenosis proximally. - MRI right foot (3/8) --> soft tissue ulceration distally of the second toe with destruction/osteomyelitis of the distal phalanx with focal osteomyelitis involving the head of the second toe middle phalanx as well. - Podiatry took pt for 2nd toe amputation today -Vascular following and severe pad noted on CTA with runoff. -Will await surgical decisions. -prn pain control (2) Non-healing open wound of toe Status: Chronic Plan: - See above. (3) DM (diabetes mellitus) Status: Chronic Plan: - Pt was hypoglycemic at admission but blood sugar has improved. - Low dose NovoLog SSI - Accu checks (4) HTN (hypertension) Status: Chronic Plan: - Resume Atenolol - Hold Lisinopril due to hyperkalemia (5) H/O prostate cancer Status: Chronic (6) Chronic lumbar radiculopathy Status: Chronic Elpidio Preciado MD Aug 29, 2016 10:04
[2016-08-29] MEDS ORDERED: ACETAMINOPHEN/HYDROcodone 325 MG/5 MG TAB PO PRN (10:15)
[2016-08-29 10:21] LABS: BICARBONATE 28.5 MEQ/L (21.0-32.0)
[2016-08-29] MEDS: ACETAMINOPHEN/HYDROcodone 325 MG/5 MG TAB PO PRN ×2 (10:41→16:43)
--- NOTE | 2016-08-29 10:49 | EKG ---
Date Performed: 08/29/2016 Time Performed: 05:38:12 PTAGE: 76 years EKG: Sinus rhythm with PAC(s) Borderline ECG NO PREVIOUS TRACING DOCTOR: Ender Tijerina Interpretating Date/Time 08/29/2016 10:47:15
[2016-08-29] MEDS ORDERED: ONDANSETRON HCL 4 MG/2 ML VIAL IV PUSH ONE (12:00)
[2016-08-29] MEDS ORDERED: PROPOFOL 200 MG/20 ML AMP IV ONE (12:00)
[2016-08-29 13:22] VITALS: BP 137/65; PULSE 63; RESP 17; TEMP 96.5; O2SAT 97
[2016-08-29 16:22] VITALS: BP 131/60; PULSE 61; RESP 20; TEMP 97.8; O2SAT 93
[2016-08-29] MEDS: LACTATED RINGER'S 1000 ML IV SCH (16:30)
[2016-08-29] MEDS ORDERED: SODIUM CHLORID 0.9% 500 ML IV SCH (16:30)
[2016-08-29 21:01] VITALS: BP 145/68; PULSE 60; RESP 16; TEMP 97; O2SAT 95
[2016-08-30] VITALS (7 sets, daily range): BP systolic 146–165; BP diastolic 66–91; PULSE 58–68; RESP 17–18; TEMP 97.4–99.4; O2SAT 96–97
[2016-08-30] MEDS: INSULIN ASPART SUPPLEMENTAL SCALE SQ SCH ×4 (07:11→21:00)
[2016-08-30] MEDS: PRAVASTATIN SOD 40 MG TAB PO SCH (08:52)
[2016-08-30] MEDS: ACETAMINOPHEN/HYDROcodone 325 MG/5 MG TAB PO PRN ×2 (08:52→18:51)
[2016-08-30] MEDS: ATENOLOL 25 MG TAB PO SCH (08:52)
--- NOTE | 2016-08-30 09:29 | HHI.PR ---
Subjective Remarks doing well. eager for d/c Objective Vitals heart reg lung cta abd s/nt ext right foot bandaged. Vital Signs Date Time Temp Pulse Resp B/P Pulse Ox O2 Delivery O2 Flow Rate FiO2 08/30/16 09:02 96 08/30/16 08:31 98.6 64 18 154/70 96 08/30/16 05:00 98.2 68 17 146/66 97 08/30/16 00:26 98.2 68 17 156/67 97 08/29/16 21:01 97.0 60 16 145/68 95 08/29/16 16:22 97.8 61 20 131/60 93 08/29/16 13:22 96.5 63 17 137/65 97 08/29/16 11:41 16 08/29/16 10:42 16 08/29/16 09:53 97.0 68 16 161/70 96 08/29/16 08/29/16 08/30/16 15:00 23:00 07:00 Intake Total 590 ml 360 ml Output Total 0 ml 850 ml Balance 590 ml -490 ml Intake Oral 290 ml 360 ml IV Total 0 ml Other 300 ml Output Urine Total 0 ml 850 ml # Voids 1 Result Diagram: 08/28/16 0956 08/29/16 0937 A/P Problem List: (1) Osteomyelitis Status: Acute Plan: - Pt sent to the ED by Podiatry for right 2nd foot nonhealing ulceration and possible osteomyelitis. -Pt says 2 weeks ago he was filing off callus under his foot/toes. caused some bleeding then he noticed ulceration and then necrotic tip on 2nd toe. -Last week patient had angiogram with dr Costello and found to have an Infrarenal descending aortic aneurysm. Moderate in-stent restenosis within the right common iliac artery stent. The left common iliac artery stent appears to be widely patent. Severe right mid to distal superficial femoral artery stenosis with an apparent small fractured emboli stent. Bilateral infrapopliteal disease which includes occluded posterior tibial arteries. Severe anterior tibial artery stenosis proximally. - MRI right foot (08/28) --> soft tissue ulceration distally of the second toe with destruction/osteomyelitis of the distal phalanx with focal osteomyelitis involving the head of the second toe middle phalanx as well. - Podiatry took pt for 2nd toe amputation -Vascular following and severe pad noted on CTA with runoff. -Will await surgical decisions. and d/c when ok with surg. path pending. -prn pain control (2) Non-healing open wound of toe Status: Chronic Plan: - See above. (3) DM (diabetes mellitus) Status: Chronic Plan: - Pt was hypoglycemic at admission but blood sugar has improved. - Low dose NovoLog SSI - Accu checks (4) HTN (hypertension) Status: Chronic Plan: - Resume Atenolol - Hold Lisinopril due to hyperkalemia (5) H/O prostate cancer Status: Chronic (6) Chronic lumbar radiculopathy Status: Chronic Elpidio Preciado MD Aug 30, 2016 09:29
[2016-08-30] MEDS ORDERED: HYDR-3516 PO (16:59)
--- NOTE | 2016-08-30 18:00 | PD.CAR.PN ---
CVT Progress Note Subjective/Hospital Course: Consult received Full consultation to follow CTA with runoff ordered. Patient does have abdominal aortic aneurysm and has bilateral iliac stents I have seen patient in the Lab at the request of Dr. newton last week and patient was supposed to follow with my office but now that he is here we'll go ahead with a CTA runoff and then go from there Podiatry may proceed with any scheduled surgery today or tomorrow for this will be unrelated to what I do Full consult to follow Yohana Yancey 08/30/16 I reviewed patient's CTA Patient has bilateral stenosis of the superficial femoral arteries distally in the adductor canal and right is fairly critical. Even with that the flow- limiting problem is the distal runoff for patient has occlusion of anterior tibial artery,. Flow in the posterior tibial artery to sort of mcfp down the calf and the only run off vessels peroneal which is not the best thing to have Based on all that I believe the best option is to do balloon angioplasty and possible stent of distal SFA I will discuss this with interventional radiology and go from there I discussed this with patient at length Objective: Vital Signs Date Time Temp Pulse Resp B/P Pulse Ox O2 Delivery O2 Flow Rate FiO2 08/30/16 16:22 99.4 61 18 165/74 08/30/16 12:21 98.8 58 18 146/70 96 08/30/16 09:02 96 08/30/16 08:31 98.6 64 18 154/70 96 08/30/16 05:00 98.2 68 17 146/66 97 08/30/16 00:26 98.2 68 17 156/67 97 08/29/16 21:01 97.0 60 16 145/68 95 Result Diagram: 08/28/16 0956 08/29/16 0937 Aubrey Voss MD Aug 30, 2016 18:00
[2016-08-31] VITALS (7 sets, daily range): BP systolic 127–182; BP diastolic 59–87; PULSE 57–65; RESP 18–22; TEMP 97.1–98.9; O2SAT 95–98
[2016-08-31] MEDS: cloNIDine HCL 0.1 MG TAB PO PRN (05:48)
[2016-08-31] MEDS: ACETAMINOPHEN/HYDROcodone 325 MG/5 MG TAB PO PRN ×5 (05:48→23:20)
[2016-08-31] MEDS: INSULIN ASPART SUPPLEMENTAL SCALE SQ SCH ×4 (06:49→23:13)
[2016-08-31] MEDS: LISINOPRIL 20 MG TAB PO SCH (09:12)
[2016-08-31] MEDS: PRAVASTATIN SOD 40 MG TAB PO SCH (09:12)
[2016-08-31] MEDS: ATENOLOL 25 MG TAB PO SCH (09:13)
--- NOTE | 2016-08-31 11:00 | PD.POD ---
Subjective Podiatric Problems s/p R 2nd toe amputation 08/29/16 [place] Past Med/Surg/Social History Past Surgical History Breast: DENIES HX OF: Mastectomy, bilateral, Mastectomy, left, Mastectomy, right Social History Smoking Status: Never Smoker Objective Vital Signs Vital Signs Date Time Temp Pulse Resp B/P Pulse Ox O2 Delivery O2 Flow Rate FiO2 08/31/16 08:55 97.5 60 22 134/59 95 08/31/16 04:00 97.3 59 20 182/77 96 08/31/16 00:00 98.2 65 18 150/87 98 08/31/16 00:00 98.2 65 18 150/87 98 08/30/16 20:00 97.4 59 18 161/91 97 08/30/16 20:00 97.4 59 18 161/91 97 08/30/16 16:22 99.4 61 18 165/74 08/30/16 12:21 98.8 58 18 146/70 96 Coded Allergies: No Known Allergies (Verified , 08/28/16) Exam-Podiatry Remarks bandage clean, dry, intact R foot Assessment & Plan A/P s/p amputation R 2nd toe due to osteomyelitis 08/29/16 [place] Plan to change bandage tomorrow Keep clean, dry, intact Spoke with Dr Voss and his plan is to attempt angio of the SFA on Friday. Aminta Olivier DPM Aug 31, 2016 11:00
[2016-08-31] MEDS ORDERED: LACTULOSE SYRUP 20 GM/30 ML CUP PO ONE (12:00)
--- NOTE | 2016-08-31 12:05 | HHI.PR ---
Subjective Remarks doing ok. eager for d/c Objective Vitals heart reg lung cta abd s/nt ext right foot bandaged. Vital Signs Date Time Temp Pulse Resp B/P Pulse Ox O2 Delivery O2 Flow Rate FiO2 08/31/16 09:06 96 21 08/31/16 08:55 97.5 60 22 134/59 95 08/31/16 04:00 97.3 59 20 182/77 96 08/31/16 00:00 98.2 65 18 150/87 98 08/31/16 00:00 98.2 65 18 150/87 98 08/30/16 20:00 97.4 59 18 161/91 97 08/30/16 20:00 97.4 59 18 161/91 97 08/30/16 16:22 99.4 61 18 165/74 08/30/16 12:21 98.8 58 18 146/70 96 08/30/16 08/30/16 08/31/16 15:00 23:00 07:00 Output Total 675 ml Balance -675 ml Output Urine Total 675 ml Result Diagram: 08/28/16 0956 08/29/16 0937 A/P Problem List: (1) Osteomyelitis Status: Acute Plan: - Pt sent to the ED by Podiatry for right 2nd foot nonhealing ulceration and possible osteomyelitis. -Pt says 2 weeks ago he was filing off callus under his foot/toes. caused some bleeding then he noticed ulceration and then necrotic tip on 2nd toe. -Last week patient had angiogram with dr Costello and found to have an Infrarenal descending aortic aneurysm. Moderate in-stent restenosis within the right common iliac artery stent. The left common iliac artery stent appears to be widely patent. Severe right mid to distal superficial femoral artery stenosis with an apparent small fractured emboli stent. Bilateral infrapopliteal disease which includes occluded posterior tibial arteries. Severe anterior tibial artery stenosis proximally. - MRI right foot (08/28) --> soft tissue ulceration distally of the second toe with destruction/osteomyelitis of the distal phalanx with focal osteomyelitis involving the head of the second toe middle phalanx as well. - Podiatry took pt for 2nd toe amputation -path shows clear margins. ngtd on cx. -Vascular following and severe pad noted on CTA with runoff. -Will await surgical decisions. apparently intervention of right sfa on Friday planned. (2) Non-healing open wound of toe Status: Chronic Plan: - See above. (3) DM (diabetes mellitus) Status: Chronic Plan: - Pt was hypoglycemic at admission but blood sugar has improved. - Low dose NovoLog SSI - Accu checks (4) HTN (hypertension) Status: Chronic Plan: - Resume Atenolol - Hold Lisinopril due to hyperkalemia (5) H/O prostate cancer Status: Chronic (6) Chronic lumbar radiculopathy Status: Chronic Elpidio Preciado MD Aug 31, 2016 12:05
[2016-08-31] MEDS: LACTATED RINGER'S 1000 ML IV SCH (16:30)
[2016-09-01] VITALS: BP 123/59; PULSE 52; RESP 18; TEMP 98.2; O2SAT 97
[2016-09-01] MEDS: ACETAMINOPHEN/HYDROcodone 325 MG/5 MG TAB PO PRN ×3 (05:13→21:38)
[2016-09-01] MEDS: INSULIN ASPART SUPPLEMENTAL SCALE SQ SCH ×3 (05:26→17:49)
[2016-09-01 08:00] VITALS: BP 167/74; PULSE 58; RESP 18; TEMP 96; O2SAT 98
[2016-09-01] MEDS: PRAVASTATIN SOD 40 MG TAB PO SCH (08:44)
[2016-09-01] MEDS: ATENOLOL 25 MG TAB PO SCH (08:45)
[2016-09-01] MEDS: LISINOPRIL 20 MG TAB PO SCH (08:45)
[2016-09-01] MEDS ORDERED: LACTULOSE SYRUP 20 GM/30 ML CUP PO PRN (09:00)
--- NOTE | 2016-09-01 10:38 | HHI.PR ---
Subjective Remarks seems frustrated. willing to stay for procedure tomorrow. Objective Vitals heart reg lung cta abd s/nt ext right 2nd toe amputated wound bandaged. Vital Signs Date Time Temp Pulse Resp B/P Pulse Ox O2 Delivery O2 Flow Rate FiO2 09/01/16 08:00 96.0 58 18 167/74 98 09/01/16 00:00 98.2 52 18 123/59 97 08/31/16 20:00 98.9 58 18 127/62 97 08/31/16 16:24 97.2 57 22 142/66 96 08/31/16 12:58 97.1 58 22 129/60 95 08/31/16 08/31/16 09/01/16 14:59 22:59 06:59 Output Total 850 ml Balance -850 ml Output Urine Total 850 ml # Voids 4 Result Diagram: 08/28/16 0956 08/29/16 0937 A/P Problem List: (1) Osteomyelitis Status: Acute Plan: - Pt sent to the ED by Podiatry for right 2nd foot nonhealing ulceration and possible osteomyelitis. -Pt says 2 weeks ago he was filing off callus under his foot/toes. caused some bleeding then he noticed ulceration and then necrotic tip on 2nd toe. -Last week patient had angiogram with dr Costello and found to have an Infrarenal descending aortic aneurysm. Moderate in-stent restenosis within the right common iliac artery stent. The left common iliac artery stent appears to be widely patent. Severe right mid to distal superficial femoral artery stenosis with an apparent small fractured emboli stent. Bilateral infrapopliteal disease which includes occluded posterior tibial arteries. Severe anterior tibial artery stenosis proximally. - MRI right foot (08/28) --> soft tissue ulceration distally of the second toe with destruction/osteomyelitis of the distal phalanx with focal osteomyelitis involving the head of the second toe middle phalanx as well. - Podiatry took pt for 2nd toe amputation -path shows clear margins. ngtd on cx. -Vascular following and severe pad noted on CTA with runoff. -Will await surgical decisions. apparently intervention of right sfa on Friday planned. npo after MN (2) Non-healing open wound of toe Status: Chronic Plan: - See above. (3) DM (diabetes mellitus) Status: Chronic Plan: - Pt was hypoglycemic at admission but blood sugar has improved. - Low dose NovoLog SSI - Accu checks (4) HTN (hypertension) Status: Chronic Plan: - Resume Atenolol - Hold Lisinopril due to hyperkalemia (5) H/O prostate cancer Status: Chronic (6) Chronic lumbar radiculopathy Status: Chronic Elpidio Preciado MD Sep 01, 2016 10:38
[2016-09-01 12:00] VITALS: BP 161/78; PULSE 61; RESP 18; TEMP 97.4; O2SAT 99
[2016-09-01] MEDS ORDERED: METOPROLOL TARTRATE 25 MG TAB PO PRN (14:15)
[2016-09-01] MEDS ORDERED: LACTATED RINGER'S 1000 ML IV SCH (14:15)
[2016-09-01] MEDS ORDERED: SODIUM CHLORID 0.9% 500 ML IV SCH (14:15)
[2016-09-01] MEDS ORDERED: INSULIN HUMAN REGULAR 1,000 UNITS/10 ML VIAL SQ PRN (14:15)
--- NOTE | 2016-09-01 14:46 | PD.CAR.PN ---
CVT Progress Note Subjective/Hospital Course: Consult received Full consultation to follow CTA with runoff ordered. Patient does have abdominal aortic aneurysm and has bilateral iliac stents I have seen patient in the Lab at the request of Dr. newton last week and patient was supposed to follow with my office but now that he is here we'll go ahead with a CTA runoff and then go from there Podiatry may proceed with any scheduled surgery today or tomorrow for this will be unrelated to what I do Full consult to follow Yohana Yancey 08/30/16 I reviewed patient's CTA Patient has bilateral stenosis of the superficial femoral arteries distally in the adductor canal and right is fairly critical. Even with that the flow- limiting problem is the distal runoff for patient has occlusion of anterior tibial artery,. Flow in the posterior tibial artery to sort of shelter down the calf and the only run off vessels peroneal which is not the best thing to have Based on all that I believe the best option is to do balloon angioplasty and possible stent of distal SFA I will discuss this with interventional radiology and go from there I discussed this with patient at length 09/01/16 Patient with type SFA stenosis distally and some pieces of the stent in SFA proximal to it Community case with Dr. newton who is the primary and batcher operator of this patient and he will take patient to the operating room Friday for balloon angioplasty Nothing to add to care and will be available if any issues arise Objective: Vital Signs Date Time Temp Pulse Resp B/P Pulse Ox O2 Delivery O2 Flow Rate FiO2 09/01/16 12:00 97.4 61 18 161/78 99 09/01/16 08:00 96.0 58 18 167/74 98 09/01/16 00:00 98.2 52 18 123/59 97 08/31/16 20:00 98.9 58 18 127/62 97 08/31/16 16:24 97.2 57 22 142/66 96 Result Diagram: 08/28/16 0956 08/29/16 0937 Aubrey Voss MD Sep 01, 2016 14:46
[2016-09-01 16:00] VITALS: BP 144/57; PULSE 91; RESP 18; TEMP 98.9; O2SAT 98
[2016-09-01] MEDS: LACTATED RINGER'S 1000 ML IV SCH (16:30)
--- NOTE | 2016-09-01 17:07 | PD.POD ---
Subjective Podiatric Problems s/p R 2nd toe amputation 08/29/16 [place] Past Med/Surg/Social History Past Surgical History Breast: DENIES HX OF: Mastectomy, bilateral, Mastectomy, left, Mastectomy, right Social History Smoking Status: Never Smoker Objective Vital Signs Vital Signs Date Time Temp Pulse Resp B/P Pulse Ox O2 Delivery O2 Flow Rate FiO2 09/01/16 12:00 97.4 61 18 161/78 99 09/01/16 08:00 96.0 58 18 167/74 98 09/01/16 00:00 98.2 52 18 123/59 97 08/31/16 20:00 98.9 58 18 127/62 97 Coded Allergies: No Known Allergies (Verified , 08/28/16) Physical Exam Remarks Bandage clean, dry, intact. Capillary refill intact to remaining digits. Assessment & Plan A/P s/p amputation R 2nd toe due to osteomyelitis 08/29/16 [place] Bandage changes ordered every 3 days while in house with xeroform to incision site, 4x4, cling, tape, lala with no compression. Upon d/c, patient may keep that final bandage clean, dry, intact until seen in my clinic for follow up. Continue with Dr Voss and his plan is to attempt angio of the SFA on Friday. No further treatment planned for R foot per podiatry. Cleared for d/c from podiatry standpoint and follow up with me in 1 week. Aminta Olivier DPM Sep 01, 2016 17:07
[2016-09-01 19:30] VITALS: BP 129/84; PULSE 87; RESP 20; TEMP 98.6; O2SAT 97
[2016-09-02] VITALS (14 sets, daily range): BP systolic 104–152; BP diastolic 53–92; PULSE 56–73; RESP 16–18; TEMP 97–98.4; O2SAT 96–99
[2016-09-02] MEDS: INSULIN ASPART SUPPLEMENTAL SCALE SQ SCH ×5 (01:35→21:16)
[2016-09-02] MEDS: ACETAMINOPHEN/HYDROcodone 325 MG/5 MG TAB PO PRN ×2 (07:02→19:43)
--- NOTE | 2016-09-02 08:44 | PD.CARD.PN ---
Subjective Subjective Remarks events during hospitalization are noted. I have followed the case without being formally involved. Patient has refused surgical revascularization and prefers endovascular route Since I follow him on an outpatient basis and performed the diagnostic procedure , I was asked to consider attempted peripheral intervention. Patient comfortable, but frustrated. Objective Medications Active Medications Lactated Ringer's 1,000 ml @ 30 mls/hr Q24H IV; Start 09/01/16 at 14:15 Lactulose 30 ml 30 ml DAILY PRN PO Last administered on 09/01/16t 08:44; Admin Dose 30 ML; Start 09/01/16 at 09:00 Sodium Chloride (NS 500 ml Inj) 500 ml @ 30 mls/hr [id number] IV; Start 09/01/16 at 14:15; Stop 09/02/16 at 14:14 Vital Signs / I&O Vital Signs Date Time Temp Pulse Resp B/P Pulse Ox O2 Delivery O2 Flow Rate FiO2 09/02/16 08:15 97.5 67 18 138/55 96 09/02/16 04:00 98.0 67 18 134/68 97 09/02/16 00:00 97.0 73 18 104/76 98 09/01/16 19:30 98.6 87 20 129/84 97 09/01/16 16:00 98.9 91 18 144/57 98 09/01/16 12:00 97.4 61 18 161/78 99 I/O 09/01/16 09/01/16 09/01/16 09/02/16 09/02/16 09/02/16 07:00 15:00 23:00 07:00 15:00 23:00 Intake Total 360 ml Output Total 850 ml 1000 ml Balance -850 ml 360 ml -1000 ml Intake Oral 360 ml Output Urine Total 850 ml 1000 ml # Voids 4 # Bowel Movements 2 2 Physical Exam SKIN: Warm and dry. HEAD: Normocephalic. EYES: No scleral icterus. No injection or drainage. NECK: Supple, trachea midline. No JVD or lymphadenopathy. CARDIOVASCULAR: Regular rate and rhythm without murmurs, gallops, or rubs. RESPIRATORY: Breath sounds equal bilaterally. No accessory muscle use. GASTROINTESTINAL: Abdomen soft, non-tender, nondistended. Imaging Last Impressions Foot X-Ray 08/29/16 0000 Signed Impressions: Service Date/Time: August 09:02 - CONCLUSION: 1. Amputation of right second toe. No complications identified. Zaheer Tang MD Foot MRI 08/28/16 0000 Signed Impressions: Service Date/Time: Sunday, August 28, 2016 11:19 - CONCLUSION: Soft tissue ulceration distally of the second toe with destruction/osteomyelitis of the distal phalanx. There is focal osteomyelitis involving the head of the second toe middle phalanx as well. Inocente Ferrell MD Aorta w/Runoff CTA 08/28/16 0000 Signed Impressions: Service Date/Time: Sunday, August 28, 2016 17:56 - CONCLUSION: 1. Inflow appears to be adequate down to the common femoral bilaterally. Left common iliac artery stent is patent. 2. Dense calcification in the distal right SFA and [id number] popliteal with suspected high-grade stenoses in these distribution. This is probably flow-limiting to the runoff vessels. Dominant runoff of the peroneal with high-grade stenosis in the proximal anterior tibial which is otherwise patent into the foot. 3. On the left, atherosclerotic irregularity of the distal SFA and popliteal but the vessels are patent down to the trifurcation with 2 vessel runoff via the anterior tibial and peroneal. 4. Cholelithiasis. 5. 3.9 cm infrarenal abdominal aortic aneurysm. 6. 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 Mal Iraheta MD Assessment and Plan Assessment and Plan Severe PAD - distal R SFA & proximal AT calcific stenosis. Also, small fractured embolized stent is noted on angiography within mid R SFA. discussed case in detail with the patient, Dr. Martínezite Appreciate Dr. Voss assistance. Patient refusing fem-pop bypass. Infrarenal AAA only needs monitoring given size dimensions noted on CTA. NPO after breakfast. Plan for R SFA and AT intervention. Will consider embolic protection device and placement of covered stent to trap fractured stent to avoid future embolization or thrombosis. Thank you Aly Costello MD Sep 02, 2016 08:43
[2016-09-02] MEDS: PRAVASTATIN SOD 40 MG TAB PO SCH (08:58)
[2016-09-02] MEDS: ATENOLOL 25 MG TAB PO SCH (08:58)
[2016-09-02] MEDS: LISINOPRIL 20 MG TAB PO SCH (08:58)
[2016-09-02] MEDS ORDERED: HEPARIN-NS/PF INJ 500 ML ONE (12:19)
[2016-09-02] MEDS ORDERED: HEPARIN SODIUM - IV 10,000 UNITS/10 ML VIAL ONE (12:20)
[2016-09-02] MEDS ORDERED: MIDAZOLAM HCL 2 MG/2 ML VIAL ONE ×2 (12:20→12:35)
[2016-09-02] MEDS ORDERED: IOHEXOL 350 MG/ML 100 ML BTL (for Cath Lab) OTHER ONE (14:00)
[2016-09-02] MEDS ORDERED: CLOPIDOGREL 300 MG TAB ONE (14:03)
[2016-09-02] MEDS: SODIUM CHLOR 0.9% 1000 ML INJ 1,000 ML IV SCH (14:06)
[2016-09-02] MEDS ORDERED: SODIUM CHLOR 0.9% 250 ML INJ 250 ML IV PRN (14:15)
[2016-09-02] MEDS ORDERED: MISC INFORMATION XX ONE (14:15)
[2016-09-02] MEDS ORDERED: BACITRACIN OINT 0.9 GM PKT TOP ONE (14:15)
[2016-09-02] MEDS ORDERED: LORazepam 2 MG/ML VIAL IV PRN (14:15)
[2016-09-02] MEDS ORDERED: METOCLOPRAMIDE HCL 10 MG/2 ML VIAL IV PRN (14:15)
[2016-09-02] MEDS ORDERED: LIDOCAINE HCL 1% 50 ML VIAL INFIL PRN (14:15)
[2016-09-02] MEDS ORDERED: MORPHINE SULFATE 4 MG/ML INJ IV PUSH PRN (14:15)
[2016-09-02] MEDS ORDERED: ONDANSETRON HCL 4 MG/2 ML VIAL IV PRN (14:15)
[2016-09-02] MEDS ORDERED: ATROPINE SULFATE 1 MG/ML VIAL IV PRN (14:15)
[2016-09-02] MEDS ORDERED: CLOPIDOGREL 300 MG TAB PO ONE (14:15)
[2016-09-02] MEDS: cloNIDine HCL 0.1 MG TAB PO PRN (14:29)
--- NOTE | 2016-09-02 14:54 | MA ---
cc: SIM ARELLANO DATE: 09/02/2016 BRIEF HISTORY/INDICATION FOR PROCEDURE A 76-year-old gentleman with a necrotic right toe status post recent toe amputation with Dr. Olivier, podiatry. He underwent diagnostic peripheral angiography and was referred for femoral-popliteal bypass. The patient refused surgical bypass and is now here for attempted endovascular revascularization. PROCEDURE PERFORMED 1. Fluoroscopy with interpretation. 2. Right lower extremity peripheral angiography with second and third order visualization and interpretation. 3. Orbital rotational atherectomy and balloon angioplasty of the right superficial femoral and anterior tibial arteries. 4. Endovascular stenting of the right superficial femoral artery. METHOD The risks, benefits and alternatives were discussed with the patient. The patient understood and consented to the procedure. The patient was brought into the catheterization lab and placed on the catheterization table. The left groin was prepped and draped in a sterile fashion. The left groin was anesthetized with 2% lidocaine. The left common femoral artery was cannulated and a 7-Iranian, 11 cm sheath was placed without difficulty. RIGHT LOWER EXTREMITY PERIPHERAL ANGIOGRAPHY 1. Right common and profunda arteries have minor luminal irregularities. 2. Right superficial femoral artery has heavy calcium present in its mid to distal segment. In the midsegment there appears to be three small stent fractured segments. 3. The anterior tibial is subtotally occluded. 4. The peroneal and posterior tibial vessels are small in caliber size. PERIPHERAL INTERVENTION A 5-Iranian RIM catheter was selectively engaged in the right common iliac artery. A 0.035 inch Advantage wire was advanced down to the proximal superficial femoral artery. A 7-Iranian, 45 cm Terumo [employer] [place] sheath was advanced up-and-over the arch to the level of the right common femoral artery. A 0.014 inch, [address] wire was carefully navigated by the prior fractured stent, not to embolize them, past the severe calcific mid to distal superficial femoral artery and down through the chronically occluded anterior tibial artery. A 0.035 inch Trailblazer was then navigated down to the distal anterior tibial vessel and the Advantage wire placed back down through the Trailblazer catheter. We elected to proceed directly with covered stenting of the fractured stent fragments as to avoid potential embolization. A 6.0 x 59 mm balloon expandable Atrium stent was then deployed covering the stent fractured segments and some of the calcific stenosis. Tried to minimize the length of cover stent due to branch vessels and collaterals. A 6.0 x 120 mm Medtronic self-expanding stent was then deployed in the mid to distal superficial femoral artery. Post dilated with a 6.0 balloon. Repeat angiography showed no significant residual stenosis in the mid superficial femoral artery. A 1.5 mm CSI atherectomy catheter was then prepped and advanced down into the distal superficial femoral artery and orbital rotational atherectomy was performed through the distal superficial femoral artery and anterior tibial vessel on two sequential passes each. A 6.0 x 120 mm Medtronic drug-coated balloon was then deployed for prolonged inflation in the distal superficial femoral artery. A 3.0 x 40 mm Medtronic balloon was then deployed in the anterior tibial vessel. Repeat angiography showed no significant residual stenosis, LITTLE-III flow. The wires were removed. The sheath was removed and replaced with a 7-Iranian, 11 cm short sheath. Heparin was administered throughout the entire procedure to maintain appropriate anticoagulation. CONCLUSIONS 1. Successful endovascular stenting of the mid right superficial femoral artery. 2. Successful orbital rotational atherectomy and balloon angioplasty with drug-coated balloon of the distal right superficial femoral artery. 3. Successful angioplasty of subtotally occluded anterior tibial vessel. PLAN The patient will be monitored closely for any post-procedure complications. We can potentially discuss staged intervention of the left superficial femoral stenosis. Will also have to monitor annually for his infrarenal descending aortic aneurysm. Will administer heparin. Hopefully this will translate well to improved wound healing. MD PHONG An/ABHISHEK /1:11 PM /1:36 PM MTDWilliam
[2016-09-02] MEDS: LACTATED RINGER'S 1000 ML IV SCH (16:30)
--- NOTE | 2016-09-02 19:05 | HHI.PR ---
Subjective Remarks No new complaints. Objective Vitals Vital Signs Date Time Temp Pulse Resp B/P Pulse Ox O2 Delivery O2 Flow Rate FiO2 09/02/16 16:00 56 09/02/16 15:58 62 09/02/16 15:10 97.9 59 17 135/66 99 09/02/16 15:00 62 09/02/16 12:17 98.2 61 18 133/53 96 09/02/16 08:15 97.5 67 18 138/55 96 09/02/16 04:00 98.0 67 18 134/68 97 09/02/16 00:00 97.0 73 18 104/76 98 09/01/16 19:30 98.6 87 20 129/84 97 09/01/16 09/01/16 09/02/16 15:00 23:00 07:00 Intake Total 360 ml Output Total 1000 ml Balance 360 ml -1000 ml Intake Oral 360 ml Output Urine Total 1000 ml # Voids 4 # Bowel Movements 2 2 Result Diagram: 08/29/16 0937 Imaging Last Impressions Foot X-Ray 08/29/16 0000 Signed Impressions: Service Date/Time: August 09:02 - CONCLUSION: 1. Amputation of right second toe. No complications identified. Zaheer Tang MD Foot MRI 08/28/16 0000 Signed Impressions: Service Date/Time: Sunday, August 28, 2016 11:19 - CONCLUSION: Soft tissue ulceration distally of the second toe with destruction/osteomyelitis of the distal phalanx. There is focal osteomyelitis involving the head of the second toe middle phalanx as well. Inocente Ferrell MD Aorta w/Runoff CTA 08/28/16 0000 Signed Impressions: Service Date/Time: Sunday, August 28, 2016 17:56 - CONCLUSION: 1. Inflow appears to be adequate down to the common femoral bilaterally. Left common iliac artery stent is patent. 2. Dense calcification in the distal right SFA and [id number] popliteal with suspected high-grade stenoses in these distribution. This is probably flow-limiting to the runoff vessels. Dominant runoff of the peroneal with high-grade stenosis in the proximal anterior tibial which is otherwise patent into the foot. 3. On the left, atherosclerotic irregularity of the distal SFA and popliteal but the vessels are patent down to the trifurcation with 2 vessel runoff via the anterior tibial and peroneal. 4. Cholelithiasis. 5. 3.9 cm infrarenal abdominal aortic aneurysm. 6. 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 Mal Iraheta MD Objective Remarks GENERAL: This is a well-nourished, well-developed patient, in no apparent distress. CARDIOVASCULAR: Regular rate and rhythm without murmurs, gallops, or rubs. RESPIRATORY: Clear to auscultation. Breath sounds equal bilaterally. No wheezes , rales, or rhonchi. GASTROINTESTINAL: Abdomen soft, non-tender, nondistended. Normal active bowel sounds MUSCULOSKELETAL: Extremities without clubbing, cyanosis, or edema. NEURO: Alert & Oriented x4 to person, place, time, situation. Moves all ext x4 A/P Problem List: (1) PVD (peripheral vascular disease) Status: Acute Plan: - Pt previously underwent diagnostic peripheral angiography - Pt was recommended for femoral-popliteal bypass, but refused surgical bypass - Pt underwent endovascular revascularization with Dr. Costello (09/02/16) - stenting of mid right superficial femoral artery - orbital rotational arterectomy and balloon angioplasty with drug coated balloon of the distal right superficial femoral artery - anipplasty of subtotally occluded anterior tibial vessel - Possible future staged intervention of the left superficial femoral stenosis with Dr. Costello - monitor annually for infrarenal descending aortic aneurysm with Dr. Costello - anticipate d/c to home in 1-2 days (2) Osteomyelitis Status: Acute Plan: - Pt sent to the ED by Podiatry for right 2nd foot nonhealing ulceration and possible osteomyelitis. -Pt says 2 weeks ago he was filing off callus under his foot/toes. caused some bleeding then he noticed ulceration and then necrotic tip on 2nd toe. -Last week patient had angiogram with dr Costello and found to have an Infrarenal descending aortic aneurysm. Moderate in-stent restenosis within the right common iliac artery stent. The left common iliac artery stent appears to be widely patent. Severe right mid to distal superficial femoral artery stenosis with an apparent small fractured emboli stent. Bilateral infrapopliteal disease which includes occluded posterior tibial arteries. Severe anterior tibial artery stenosis proximally. - MRI right foot (08/28) --> soft tissue ulceration distally of the second toe with destruction/osteomyelitis of the distal phalanx with focal osteomyelitis involving the head of the second toe middle phalanx as well. - Podiatry took pt for 2nd toe amputation -path shows clear margins. ngtd on cx. - see above (3) Non-healing open wound of toe Status: Chronic Plan: - See above. (4) DM (diabetes mellitus) Status: Chronic Plan: - Pt was hypoglycemic at admission, but blood sugars now running high - trial of levemir 10 units qPM - SSI - HgA!C 6.7 (02/06/16) (5) HTN (hypertension) Status: Chronic Plan: - Resume Atenolol - Hold Lisinopril due to hyperkalemia (6) H/O prostate cancer Status: Chronic (7) Chronic lumbar radiculopathy Status: Chronic Ant Gill DO Sep 02, 2016 19:05
[2016-09-02] MEDS ORDERED: INSULIN DETEMIR 100 UNITS/ML VIAL SQ SCH (21:00)
[2016-09-02] MEDS ORDERED: EPINEPHrine HCL (1:10,000) 1 MG/10 ML SYRINGE ONE (21:47)
--- NOTE | 2016-09-02 22:12 | RADRPT ---
EXAM DATE/TIME: 09/02/2016 21:58 [facility] COMPARISON: No previous studies available for comparison. INDICATIONS : Abdominal pain and constipation. MEDICAL HISTORY : Carcinoma, prostatic. Cardiovascular disease. Hypertension. Diabetes mellitus type 2. SURGICAL HISTORY : Prostate radiation seeds. ENCOUNTER: Initial ACUITY: 1 day PAIN SCORE: 8/10 LOCATION: all quadrants. FINDINGS: Supine view of the abdomen was performed. The abdominal bowel gas pattern is nonspecific. There is s ome stool throughout the colon. There is some air-filled nondilated loops of small and large bowel. N o definite calcifications are seen overlying the kidneys. There is a penile prosthesis in place. Ther e are seeds in the prostate gland. There are degenerative changes of the lumbar spine and pelvis. CONCLUSION: Benign KUB. Romeo Mai MD on September 02, 2016 at 22:10 Board Certified Radiologist. This report was verified electronically.
[2016-09-02 22:22] LABS: AUTOMATED NEUTROPHIL # 6.1 TH/MM3 (1.8-7.7); BASOPHIL % 0.4 % (0.0-2.0); EOSINOPHIL # 0.1 TH/MM3 (0-0.4); EOSINOPHIL % 1.5 % (0.0-4.0); HEMATOCRIT 35.1 % (39.0-51.0); HEMO FLAGS DIFF FINAL; LYMPHOCYTE # 1.3 TH/MM3 (1.0-4.8); MEAN CELL VOLUME 90.4 FL (80.0-100.0); MEAN CORPUSCULAR HGB CONC 34.3 % (32.0-36.0); MONO % 8.5 % (0.0-8.0); NEUT % 73.6 % (16.0-70.0); PLATELET COUNT 162 TH/MM3 (150-450); RED BLOOD COUNT 3.88 MIL/MM3 (4.50-5.90); RED CELL DISTRIBUTION WIDTH 13.7 % (11.6-17.2); WHITE BLOOD COUNT 8.2 TH/MM3 (4.0-11.0)
[2016-09-03] VITALS (11 sets, daily range): BP systolic 145–172; BP diastolic 65–73; PULSE 48–70; RESP 16–18; TEMP 98–98.2; O2SAT 98–99
[2016-09-03] MEDS: SODIUM CHLOR 0.9% 1000 ML INJ 1,000 ML IV SCH (00:52)
[2016-09-03] MEDS: ACETAMINOPHEN/HYDROcodone 325 MG/5 MG TAB PO PRN (04:04)
[2016-09-03] MEDS: cloNIDine HCL 0.1 MG TAB PO PRN (04:04)
[2016-09-03 05:57] LABS: AUTOMATED NEUTROPHIL # 5.5 TH/MM3 (1.8-7.7); BASOPHIL % 0.4 % (0.0-2.0); EOSINOPHIL # 0.2 TH/MM3 (0-0.4); EOSINOPHIL % 2.6 % (0.0-4.0); HEMATOCRIT 35.7 % (39.0-51.0); HEMO FLAGS DIFF FINAL; LYMPH % 22.8 % (9.0-44.0); LYMPHOCYTE # 1.9 TH/MM3 (1.0-4.8); MEAN CELL VOLUME 89.7 FL (80.0-100.0); MEAN CORPUSCULAR HEMOGLOBIN 30.8 PG (27.0-34.0); MEAN CORPUSCULAR HGB CONC 34.3 % (32.0-36.0); MONO % 8.4 % (0.0-8.0); NEUT % 65.8 % (16.0-70.0); PLATELET COUNT 193 TH/MM3 (150-450); RED BLOOD COUNT 3.98 MIL/MM3 (4.50-5.90); RED CELL DISTRIBUTION WIDTH 13.9 % (11.6-17.2); WHITE BLOOD COUNT 8.4 TH/MM3 (4.0-11.0)
[2016-09-03 06:19] LABS: BICARBONATE 25.1 MEQ/L (21.0-32.0); POTASSIUM 4.4 MEQ/L (3.5-5.1)
[2016-09-03] MEDS: INSULIN ASPART SUPPLEMENTAL SCALE SQ SCH ×2 (06:42→11:00)
--- NOTE | 2016-09-03 07:24 | PD.CARD.PN ---
Subjective Subjective Remarks denies any claudication (Wade Dunlap) Objective Vital Signs / I&O Vital Signs Date Time Temp Pulse Resp B/P Pulse Ox O2 Delivery O2 Flow Rate FiO2 09/03/16 03:00 98.2 70 16 172/73 99 09/03/16 00:00 64 09/02/16 23:00 98.4 65 16 130/66 97 09/02/16 23:00 69 09/02/16 22:00 63 09/02/16 21:00 62 09/02/16 20:00 60 09/02/16 19:15 56 09/02/16 19:00 56 09/02/16 19:00 98.4 61 16 152/92 99 09/02/16 16:00 56 09/02/16 15:58 62 09/02/16 15:10 97.9 59 17 135/66 99 09/02/16 15:00 62 09/02/16 12:17 98.2 61 18 133/53 96 09/02/16 08:15 97.5 67 18 138/55 96 I/O 09/02/16 09/02/16 09/02/16 09/03/16 09/03/16 09/03/16 07:00 15:00 23:00 07:00 15:00 23:00 Intake Total 240 ml 1873 ml Output Total 1000 ml 550 ml Balance -1000 ml 240 ml 1323 ml Intake Oral 240 ml 480 ml IV Total 1393 ml Output Urine Total 1000 ml 550 ml # Voids 3 # Bowel Movements 2 1 Physical Exam GENERAL: Well-nourished, well-developed patient in no apparent distress. NECK: No JVD. No carotid bruit. CARDIOVASCULAR: Regular rate and rhythm. S1/S2 no murmur, rub, or gallop. RESPIRATORY: No accessory muscle use. Clear to auscultation. Breath sounds equal bilaterally. GASTROINTESTINAL: Abdomen soft, non-tender, nondistended. MUSCULOSKELETAL: Extremities without clubbing, cyanosis, or edema. left femoral pulse 2+ left fem C/D/I Laboratory Laboratory Tests Test 09/02/16 09/03/16 21:48 04:30 White Blood Count 8.2 TH/MM3 8.4 TH/MM3 Red Blood Count 3.88 MIL/MM3 3.98 MIL/MM3 Hemoglobin 12.0 GM/DL 12.2 GM/DL Hematocrit 35.1 % 35.7 % Mean Corpuscular Volume 90.4 FL 89.7 FL Mean Corpuscular Hemoglobin 31.0 PG 30.8 PG Mean Corpuscular Hemoglobin 34.3 % 34.3 % Concent Red Cell Distribution Width 13.7 % 13.9 % Platelet Count 162 TH/MM3 193 TH/MM3 Mean Platelet Volume 8.8 FL 8.9 FL Neutrophils (%) (Auto) 73.6 % 65.8 % Lymphocytes (%) (Auto) 16.0 % 22.8 % Monocytes (%) (Auto) 8.5 % 8.4 % Eosinophils (%) (Auto) 1.5 % 2.6 % Basophils (%) (Auto) 0.4 % 0.4 % Neutrophils # (Auto) 6.1 TH/MM3 5.5 TH/MM3 Lymphocytes # (Auto) 1.3 TH/MM3 1.9 TH/MM3 Monocytes # (Auto) 0.7 TH/MM3 0.7 TH/MM3 Eosinophils # (Auto) 0.1 TH/MM3 0.2 TH/MM3 Basophils # (Auto) 0.0 TH/MM3 0.0 TH/MM3 CBC Comment DIFF FINAL DIFF FINAL Differential Comment Sodium Level 141 MEQ/L Potassium Level 4.4 MEQ/L Chloride Level 105 MEQ/L Carbon Dioxide Level 25.1 MEQ/L Anion Gap 11 MEQ/L Blood Urea Nitrogen 22 MG/DL Creatinine 1.03 MG/DL Estimat Glomerular Filtration 70 ML/MIN Rate Random Glucose 159 MG/DL Calcium Level 8.8 MG/DL (Wade Dunlap) Assessment and Plan Problem List: (1) PVD (peripheral vascular disease) (2) HTN (hypertension) Assessment and Plan PAD s/p ORA and balloon angioplasty right SFA and anterior tibial artery and stenting of right SFA, doing well. Will plan for staged intervention of left SFA down the road. HTN = not well controlled will had HCTZ 25 mg daily (Wade Dunlap) Assessment and Plan complex endovascular intervention RLE. palpable pulse pop and DP no complaints DC BB due to bradycardia add hydralazine for BP asa and plavix FU with me in 2 weeks OK to DC from cardio standpoint thank you (Aly Costello MD) Wade Dunlap Sep 03, 2016 07:24 Aly Costello MD Sep 03, 2016 10:31
[2016-09-03] MEDS ORDERED: INSULIN DETEMIR 100 UNITS/ML VIAL SQ SCH (08:00)
[2016-09-03] MEDS: PRAVASTATIN SOD 40 MG TAB PO SCH (08:36)
[2016-09-03] MEDS: ATENOLOL 25 MG TAB PO SCH (08:37)
[2016-09-03] MEDS: LISINOPRIL 20 MG TAB PO SCH (08:37)
[2016-09-03] MEDS ORDERED: CLOPIDOGREL 75 MG TAB PO SCH (09:00)
[2016-09-03] MEDS ORDERED: HYDROCHLOROTHIAZIDE 25 MG TAB PO SCH (09:00)
--- NOTE | 2016-09-03 10:26 | PQ ---
Physician Query Response Document PATIENT: JO ANN BENÍTEZ : 1940 ADMIT DATE: 08/28/2016 10:56 AM DISCH DATE: RESPONDING PROVIDER #: Eschwarelida QUERY TEXT: Cause and Effect Relationship Please clarify in documentation the relationship, if any, between DIABETES MELLITUS and RIGHT 2 ND TOE ULCERATION WITH OSTEOMYELITIS Such as: -- Conditions are due to or associated -- Unrelated to each other -- Other, please specify PLEASE CALL [facility]OU[facility] IN [facility] @ EXT [phone] FOR ASSISTANCE The patient's Clinical Indicators include: PER H (1) Osteomyelitis Status: Acute Plan: - Pt sent to the ED by Podiatry for right 2nd foot nonhealing ulceration and possible osteomye litis MRI right foot (08/28) --> soft tissue ulceration distally of the second toe with destruction/osteomyel itis of the distal phalanx with focal osteomyelitis involving the head of the second toe middle phalanx as well. Query created by: Raoul Iverson on 09/03/2016 10:11 AM RESPONSE TEXT: I agree. Pt's right two ulceration and subsequent osteomyelitis is likely d/t DM2 as well as pt's PVD . Electronically signed by: Ant Gill DO 09/03/2016 10:22 AM
[2016-09-03] MEDS ORDERED: hydrALAZINE HCL 50 MG TAB PO SCH (10:30)
[2016-09-03] MEDS ORDERED: PLAV75TA29 PO (10:49)
[2016-09-03] MEDS ORDERED: HYDR50TA15 PO (10:49)
--- NOTE | 2016-09-03 11:24 | HHI.DS ---
Discharge Summary Admission Date Aug 28, 2016 at 10:56 Discharge Date: Sep 03, 2016 Admitting Diagnosis right necrotic great toe, DM, Hyperlipidemia, HTN, PVD (1) PVD (peripheral vascular disease) Diagnosis: Principal (2) Osteomyelitis Diagnosis: Principal (3) Non-healing open wound of toe Diagnosis: Secondary (4) DM (diabetes mellitus) Diagnosis: Secondary (5) HTN (hypertension) Diagnosis: Secondary (6) H/O prostate cancer Diagnosis: Secondary (7) Chronic lumbar radiculopathy Diagnosis: Secondary Consultants Dr. Aubrey Voss - Vascular surgery Dr. Aminta Jean - Podiatry Dr. Aly Costello - Cardiology Brief History Mr. Longo is a 76 y/o male with IDDM with peripheral neuropathy, HTN , hyperlipidemia, peripheral vascular disease, and hx of prostate cancer who presented to the ED at [facility] on 08/28/16 at the request of his excel developer for admission. The patient has had a worsening necrotic right second toe for which she was seen by his excel developer. She was concerned there may be osteomyelitis and requested he be admitted to the hospital and have a consult with her partner Dr. Olivier. Pt had an MRI of the foot in the ED which revealed soft tissue ulceration distally of the second toe with destruction/osteomyelitis of the distal phalanx with focal osteomyelitis involving the head of the second toe middle phalanx as well. Pt was also noted to be hypoglycemic in the ED with blood glucose of 39. This has improved to 105 after food intake. The patient denies any pain, fevers/chills, chest pain, SOB, palpitations, dizziness or weakness. CBC/BMP: 09/03/16 0430 09/03/16 0430 Significant Findings Laboratory Tests Test 09/02/16 09/03/16 21:48 04:30 Red Blood Count 3.88 MIL/MM3 3.98 MIL/MM3 (4.50-5.90) (4.50-5.90) Hemoglobin 12.0 GM/DL 12.2 GM/DL (13.0-17.0) (13.0-17.0) Hematocrit 35.1 % 35.7 % (39.0-51.0) (39.0-51.0) Neutrophils (%) (Auto) 73.6 % (16.0-70.0) Monocytes (%) (Auto) 8.5 % (0.0-8.0) 8.4 % (0.0-8.0) Blood Urea Nitrogen 22 MG/DL (7-18) Estimat Glomerular Filtration 70 ML/MIN (>89) Rate Random Glucose 159 MG/DL (74-106) Imaging Last Impressions Foot X-Ray 08/29/16 0000 Signed Impressions: Service Date/Time: August 09:02 - CONCLUSION: 1. Amputation of right second toe. No complications identified. Zaheer Tang MD Foot MRI 08/28/16 0000 Signed Impressions: Service Date/Time: Sunday, August 28, 2016 11:19 - CONCLUSION: Soft tissue ulceration distally of the second toe with destruction/osteomyelitis of the distal phalanx. There is focal osteomyelitis involving the head of the second toe middle phalanx as well. Inocente Ferrell MD Aorta w/Runoff CTA 08/28/16 0000 Signed Impressions: Service Date/Time: Sunday, August 28, 2016 17:56 - CONCLUSION: 1. Inflow appears to be adequate down to the common femoral bilaterally. Left common iliac artery stent is patent. 2. Dense calcification in the distal right SFA and [id number] popliteal with suspected high-grade stenoses in these distribution. This is probably flow-limiting to the runoff vessels. Dominant runoff of the peroneal with high-grade stenosis in the proximal anterior tibial which is otherwise patent into the foot. 3. On the left, atherosclerotic irregularity of the distal SFA and popliteal but the vessels are patent down to the trifurcation with 2 vessel runoff via the anterior tibial and peroneal. 4. Cholelithiasis. 5. 3.9 cm infrarenal abdominal aortic aneurysm. 6. 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 Mal Iraheta MD PE at Discharge GENERAL: This is a well-nourished, well-developed patient, in no apparent distress. CARDIOVASCULAR: Regular rate and rhythm without murmurs, gallops, or rubs. RESPIRATORY: Clear to auscultation. Breath sounds equal bilaterally. No wheezes , rales, or rhonchi. GASTROINTESTINAL: Abdomen soft, non-tender, nondistended. Normal active bowel sounds MUSCULOSKELETAL: Extremities without clubbing, cyanosis, or edema. NEURO: Alert & Oriented x4 to person, place, time, situation. Moves all ext x4 Hospital Course Pt was sent to the ED by Podiatry for right 2nd foot nonhealing ulceration and possible osteomyelitis. Pt says 2 weeks ago he was filing off callus under his foot/toes which caused some bleeding then he noticed ulceration and then necrotic tip on 2nd toe. Last week patient had angiogram with Dr Costello and found to have an infrarenal descending aortic aneurysm, moderate in-stent restenosis within the right common iliac artery stent, the left common iliac artery stent appears to be widely patent, severe right mid to distal superficial femoral artery stenosis with an apparent small fractured emboli stent, bilateral infrapopliteal disease which includes occluded posterior tibial arteries, and severe anterior tibial artery stenosis proximally. MRI right foot at admission revealed soft tissue ulceration distally of the second toe with destruction/osteomyelitis of the distal phalanx with focal osteomyelitis involving the head of the second toe middle phalanx as well. Podiatry took pt for right 2nd toe amputation on 08/29/[address] Olivier. Path showed clear margins. Cultures from the wound with NGTD. Pt was received bandage changes every 3 days while in house with xeroform to incision site, 4x4, cling, tape, lala with no compression. Upon d/c, patient will keep the final bandage clean, dry, intact until seen by Dr. Olivier in clinic for follow up. Pt cleared for heel touch weight bearing in his surgical shoe. And is to wear the surgical shoe when ambulating. We will order a walker for him as well. Pt was evaluated by Vacular surgery and was recommended for femoral-popliteal bypass, but refused surgical bypass. Pt underwent endovascular revascularization with Dr. Costello (09/02/16) with stenting of mid right superficial femoral artery, orbital rotational arterectomy and balloon angioplasty with drug coated balloon of the distal right superficial femoral artery, and angioplasty of subtotally occluded anterior tibial vessel. Per the procedure notes pt may need possible future staged intervention of the left superficial femoral stenosis with Dr. Costello. Pt was recommended annual monitoring of his infrarenal descending aortic aneurysm with Dr. Costello. Pt was started on Plavix 75mg po daily following the procedure. The day prior to discharge he did have a small amount of rectal bleeding with a hard BM. His H/H and vital signs remained stable. Pt will get a repeat check of his CBC on Friday , 09/09/16, with results to Dr. Valdez. Pt was hypoglycemic at admission, but blood sugars began running high. He was started on Levemir 10 units qPM with improvement in his blood sugars. Pt refused to take any new diabetes medications at discharge. He wants to resume his previous home regimen of diabetes medications. He will need to followup with his PCP regarding any changes to his diabetes medications. HgA1C 6.7 () Pts blood pressure was elevated during admission and his medication regimen was changed. Atenolol was stopped. His Lisinopril was added back on once his potassium had improved. The day of discharge Hydralazine 50mg BID was added. He will followup with Dr. Costello for continued adjustments to his antihypertensives. Pt will need to followup with Dr. Olivier in 1 week Pt will need to followup with Dr. Costello in 7-10 days. Pt will need to followup with Dr. Good in 1 week. Pt Condition on Discharge: Stable Discharge Disposition: Discharge Home Discharge Instructions DIET: Follow Instructions for: Diabetic Diet Activities you can perform: Regular-No Restrictions, See Additionl Instruction Other Activity Instructions: Heel contact ok, must wear surgical shoe when ambulating. Follow up Referrals: Cardiology - [address] Costello PCP Follow-up - [address] Good Podiatry - 1 Week with Aminta Olivier DPM New Medications: Clopidogrel (Plavix) 75 Mg Tab 75 MG PO DAILY PVD #30 TAB Hydralazine (Hydralazine) 50 Mg Tab 50 MG PO Q12HR Blood Pressure Management #62 TAB Hydrocodone-Acetaminophen (Hydrocodone-Acetaminophen) 5-325 mg Tab 1 TAB PO Q4H PRN pain #30 TAB Continued Medications: Insulin Human NPH Inj (Novolin N Inj) 1,000 Unit/10 Ml Vial 25 UNITS SQ BID Blood Sugar Management Ref 0 ML Lisinopril (Lisinopril) 40 Mg Tab 40 MG PO DAILY Blood Pressure Management Ref 0 TAB Simvastatin (Simvastatin) 20 Mg Tab 20 MG PO DAILY Cholesterol Management Ref 0 TAB Discontinued Medications: Atenolol (Atenolol) 25 Mg Tab 25 MG PO DAILY Blood Pressure Management TAB Additional Information Patient examined. Assessment and plan formulated with Meghan Lynn PA-C. I agree with the above. Meghan Lynn Sep 03, 2016 11:24 Ant Gill DO Sep 03, 2016 19:49
[2016-09-03] MEDS ORDERED: WALKER WHEELS/F1 MIS (11:25)
--- NOTE | 2016-09-03 11:36 | HHI.DCPOC ---
Discharge Care Plan Diagnosis: (1) PVD (peripheral vascular disease) (2) Osteomyelitis (3) DM (diabetes mellitus) (4) HTN (hypertension) (5) H/O prostate cancer Goals to Promote Your Health * To prevent worsening of your condition and complications * To maintain your health at the optimal level Directions to Meet Your Goals Take your medications as prescribed Follow your dietary instruction Follow activity as directed Keep your appointments as scheduled Take your immunizations and boosters as scheduled If your symptoms worsen call your PCP, if no PCP go to Urgent Care Center or Emergency Room Smoking is Dangerous to Your Health. Avoid second hand smoke Call the 24-hour hour crisis hotline for domestic abuse at Meghan Lynn Sep 03, 2016 11:36 Ant Gill DO Sep 03, 2016 19:49
--- NOTE | 2016-09-05 10:33 | MP ---
cc: AMINTA ORTIZ DPM DATE OF SURGERY: 08/29/2016 DATE OF 1940 INDICATION The patient presented to the emergency department with osteomyelitis of the right second toe. MRI confirmed that there was osteomyelitis to the distal aspect of the toe as well as visual bone exposed to the tip of the toe with necrotic tissue there as well and purulent drainage. I discussed with the patient that it would be in his best interest secondary to severe vascular issues to have his vascularity evaluated and treated while in the hospital as well as amputation of the right second toe. He consented to amputation right second toe secondary to osteomyelitis. PROCEDURE He was seen in preop holding by myself, nursing staff and Anesthesia where the correct patient, side and site were all confirmed to be correct in the right foot. He was then taken to the surgical suite, placed in supine position where attention was directed to the right second toe area. Two semi elliptical incisions were made medially and laterally encompassing the base of the second digit in order to amputate the second digit and disarticulation at the metatarsophalangeal joint. Clean white cartilage cap was noted to the second met head with no marcin purulence noted. The area was copiously irrigated and a culture was taken of the residual wound prior to primary closure with 2-0 nylon. A dressing consisting of Xeroform, 4x4, ABD pad, cast padding and Aryan wrap with no compression was applied to the right lower extremity. He did not bleed very much in surgery and is scheduled to continue with vascular evaluation in the coming days. He will be heel touch weightbearing in surgical shoe to the right foot only for transfers and short distances with a walker for assistance. Physical therapy will evaluate and treat. We will await cultures and vascular plan before discharge. SURGEON Dr. Aminta Ortiz. ROAD EQUIPMENT OPERATOR Staff. PREOPERATIVE DIAGNOSIS Osteomyelitis right second toe. POSTOPERATIVE DIAGNOSIS Osteomyelitis right second toe. PROCEDURE Amputation right second toe. PATHOLOGY Right second toe to pathology, culture right foot before closure. ANESTHESIA TIVA plus local consisting of 10 mL of 2% lidocaine plain. ESTIMATED BLOOD LOSS Minimal. PROPHYLAXIS 2 grams Ancef IV preop. COMPLICATIONS None. CONDITION Stable to PACU. DISPOSITION Weightbearing to the heel only in surgical shoe for transfers and short distances with a walker pending PT evaluation. Await cultures and vascular plan. Aminta Ortiz HM/TLL /1:00 PM /10:22 AM
== END 2016-09-03 13:50 | disposition home or self-care (01) | DRG 617 ==
LOC: NEPC 08:24 → NEDA 10:56 → HCIS 12:57 → N05A 20:16 → HCIS 09-02 13:57 → HCIN 09-02 15:10
PROVIDERS: ADMIT Hospitalist; ATTEND Hospitalist
PROC: 0Y6R0Z0 Detachment at Right 2nd Toe, Complete, Open Approach (ICD-10-PCS; principal; 2016-08-29 07:56)
PROC: 047P3DZ Dilation of Right Anterior Tibial Artery with Intraluminal Device, Percutaneous Approach (ICD-10-PCS; 2016-09-02)
PROC: 047K3EZ Dilation of Right Femoral Artery with Two Intraluminal Devices, Percutaneous Approach (ICD-10-PCS; 2016-09-02)
PROC: 04CK3ZZ Extirpation of Matter from Right Femoral Artery, Percutaneous Approach (ICD-10-PCS; 2016-09-02)
PROC: 04CP3ZZ Extirpation of Matter from Right Anterior Tibial Artery, Percutaneous Approach (ICD-10-PCS; 2016-09-02)
DX: E11.69 Type 2 diabetes mellitus with other specified complication (principal); M86.9 Osteomyelitis, unspecified; T82.898A Other specified complication of vascular prosthetic devices, implants and grafts, initial encounter; E87.5 Hyperkalemia; E11.51 Type 2 diabetes mellitus with diabetic peripheral angiopathy without gangrene; G62.9 Polyneuropathy, unspecified; K62.5 Hemorrhage of anus and rectum; L97.509 Non-pressure chronic ulcer of other part of unspecified foot with unspecified severity; I70.235 Atherosclerosis of native arteries of right leg with ulceration of other part of foot; E11.42 Type 2 diabetes mellitus with diabetic polyneuropathy; E11.621 Type 2 diabetes mellitus with foot ulcer; I10 Essential (primary) hypertension; E78.5 Hyperlipidemia, unspecified; E11.319 Type 2 diabetes mellitus with unspecified diabetic retinopathy without macular edema; E11.649 Type 2 diabetes mellitus with hypoglycemia without coma; M54.16 Radiculopathy, lumbar region; I71.4 Abdominal aortic aneurysm, without rupture; I70.209 Unspecified atherosclerosis of native arteries of extremities, unspecified extremity; L97.519 Non-pressure chronic ulcer of other part of right foot with unspecified severity; M19.90 Unspecified osteoarthritis, unspecified site; G89.29 Other chronic pain; R00.1 Bradycardia, unspecified; Y83.8 Other surgical procedures as the cause of abnormal reaction of the patient, or of later complication, without mention of misadventure at the time of the procedure; Z79.4 Long term (current) use of insulin; Z85.46 Personal history of malignant neoplasm of prostate; Z92.3 Personal history of irradiation; Z96.652 Presence of left artificial knee joint
CPT/HCPCS: 37227; 37233; 73630; 73720; 74000; 75635; 75710; 76937; 80048; 80053; 82948; 85002; 85025; 85347; 85610; 85652; 85730; 87015; 87070; 87102; 87116; 87205; 87206; 88305; 88311; 93005; 99284; A9579; C1714; C1725; C1751; C1769; C1874; C1876; C1893; C2623; J0171; J0690; J1644; J1815; J2250; J2405; J3010; J7030; J7040; Q9967

== ENCOUNTER 2017-05-18 08:21 | Emergency (ER) | payer MEDICARE ==
[~2017-05-18] VITALS: Ht 185.4 cm; Wt 102.0 kg
[~2017-05-18 08:21] MED LIST changes: -ATEN25TA PO; -FURO20TA PO; +HYDR-3516 PO; +HYDR50TA15 PO; +PLAV75TA29 PO; -TEMA30CA PO; +WALKER WHEELS/F1 MIS
[2017-05-18 08:23] VITALS: BP 177/77; PULSE 80; RESP 16; TEMP 98.3; O2SAT 97
--- NOTE | 2017-05-18 08:47 | PD ---
HPI Chief Complaint: Fall Time Seen by Provider: 08:35 Travel History International Travel<30 days: No Contact w/Intl Traveler<30days: No Traveled to known affect area: No History of Present Illness HPI 77-year-old male states he was in the bathroom early this morning when it was dark and when he was reaching for the leg got tripped up and hit his shoulder. He is having pain to his left shoulder. Quadrant pain is sharp. Severity is severe. Pain is worse with movement. He states he did not hit his head or black out. He denies any other concurrent complaints. PFSH Past Medical History Arthritis: Yes Blood Disorders: No Anxiety: No Depression: No Heart Rhythm Problems: No Cancer: Yes (prostate) Cardiovascular Problems: Yes (HTN) High Cholesterol: Yes Chest Pain: No Congestive Heart Failure: No Diabetes: Yes Patient Takes Glucophage: No Endocrine: Yes Gastrointestinal Disorders: No Glaucoma: No Genitourinary: Yes (hx of prostate cancer) Hepatitis: No Hiatal Hernia: No Hypertension: Yes Immune Disorder: No Implanted Vascular Access Dvce: Yes Medical other: Yes (INCREASED CHOLESTROL, ARTHRITIS, LOWER BACK PROBLEMS) Musculoskeletal: Yes (arthritis) Neurologic: No Psychiatric: No Reproductive: No Respiratory: No Integumentary: No Radiation Therapy: Yes (SEED IMPLANT) Thyroid Disease: No Past Surgical History Abdominal Surgery: No Body Medical Devices: PENILE IMPLANT Cardiac Surgery: Yes (STENTS PLACED BILAT GROINS) Ear Surgery: No Endocrine Surgery: No Eye Surgery: Yes (VEE CATARACT SX) Genitourinary Surgery: Yes (SEED IMPLANT, PENILE IMPLANT) Gynecologic Surgery: No Joint Replacement: Yes (left knee replacement) Neurologic Surgery: Yes (lower back) Oral Surgery: No Pacemaker: No Thoracic Surgery: No Other Surgery: Yes (LEFT KNEE) Social History Alcohol Use: No Tobacco Use: No Substance Use: No Allergies-Medications (Allergen,Severity, Reaction): Coded Allergies: No Known Allergies (Verified Adverse Reaction, Unknown, 05/18/17) Reported Meds & Prescriptions Reported Meds & Active Scripts Active Percocet (Oxycodone-Acetaminophen) 5-325 mg Tab 1 Tab PO Q6H PRN Walker with Front Wheels (Device) 1 Mis Mis 1 Ea .ROUTE DIRECTED Reported Lisinopril 40 Mg Tab 40 Mg PO DAILY Novolin N Inj (Insulin Human NPH) 1,000 Unit/10 Ml Vial 25 Units SQ BID Simvastatin 20 Mg Tab 20 Mg PO DAILY Review of Systems Except as stated in HPI: all other systems reviewed are Neg Physical Exam Narrative General: 77 y/o patient in no apparent distress Skin: warm and dry Eyes: pupils are equal NECK: no pain with palpation in midline Cardiovascular: Regular rate and rhythm Respiratory: normal respiratory effort noted, clear to auscultation bilaterally Abdomen: soft, nontender, nondistended Back: No step-offs, midline spine nontender with palpation Extremities: Pain with palpation of left shoulder, no lacerations over, neurovascularly intact, no pain with palpation of other joints Neuro: awake, alert, sensation and motor grossly intact other then left arm with pain Data Data Last Documented VS Vital Signs Date Time Temp Pulse Resp B/P (MAP) Pulse Ox O2 Delivery O2 Flow Rate FiO2 05/18/17 11:30 05/18/17 08:23 98.3 80 16 97 Orders Orders Humerus (Min 2vws) (05/18/17 ) Shoulder, Limited(2vws) (05/18/17 ) Morphine Inj (Morphine Inj) (05/18/17 09:15) Ondansetron Inj (Zofran Inj) (05/18/17 09:15) Splint Or Brace Apply/Monitor (05/18/17 09:10) Oxycodone-Acetamin 5-325 Mg (Percocet (05/18/17 09:30) Ed Discharge Order (05/18/17 10:46) MDM Medical Decision Making Medical Screen Exam Complete: Yes Emergency Medical Condition: Yes Medical Record Reviewed: Yes (pmh confirmed) Interpretation(s) Left shoulder and humerus x-ray show proximal humerus fracture without dislocation Differential Diagnosis Fracture, strain, dislocation Narrative Course We'll check x-ray and reevaluate Patient initially ordered morphine but wanting pill. Given Percocet Updated about x-ray results and sling placed, Patient denies any new complaints , all questions answered. Patient knows that follow up is incumbent on them and to return to the emergency room immediately if new or worsening symptoms develop. Patient given strict return precautions, vitals reviewed and are normal , agrees to further workup as an outpatient. Diagnosis Primary Impression: Closed fracture of left proximal humerus Qualified Codes: S42.202A - Unspecified fracture of upper end of left humerus , initial encounter for closed fracture Referrals: Orthopaedic Surgeon call for appointment this week Patient Instructions: General Instructions Additional Instructions: return as needed, keep sling in place on left arm, no weight bearing or lifting to left arm, don't take pain medication while driving Med/Other Pt SpecificInfo: Prescription(s) given Scripts Oxycodone-Acetaminophen (Percocet) 5-325 mg Tab 1 TAB PO Q6H Y for PAIN, #20 TAB 0 Refills Prov: Dori Sharif MD 05/18/17 Disposition: 01 DISCHARGE HOME Condition: Stable Dori Sharif MD May 18, 2017 08:47
[2017-05-18] MEDS ORDERED: ONDANSETRON HCL 4 MG/2 ML VIAL IV PUSH ONE (09:15)
[2017-05-18] MEDS ORDERED: MORPHINE SULFATE 4 MG/ML INJ IV PUSH ONE (09:15)
[2017-05-18] MEDS ORDERED: oxyCODONE/ACETAMINOPHEN 5 MG/325 MG TAB PO ONE (09:30)
--- NOTE | 2017-05-18 09:38 | RADRPT ---
EXAM DATE/TIME: 05/18/2017 08:50 [facility] COMPARISON: No previous studies available for comparison. INDICATIONS : Pain from fall. MEDICAL HISTORY : None. SURGICAL HISTORY : None. ENCOUNTER: Initial ACUITY: 1 day PAIN SCORE: 10/10 LOCATION: Left humeral head. FINDINGS: 2 views are performed, and internal rotation frontal view and transvaginal Y. view. There is a fract ure of the greater tuberosity with 3-4 mm separation. The junction of the humeral head and neck is n ot well seen and on the transscapular Y-view, there appears to be 8 linear fracture line which may co urse through the anatomic neck of the femur. The femoral head remains projected with the glenoid on transscapular Y-view. The visualized left upper ribs are intact. The a.c. joint is intact. CONCLUSION: Fractures of the proximal humerus without dislocation. Hernandez Whitney MD on May 18, 2017 at 9:34 Board Certified Radiologist. This report was verified electronically.
--- NOTE | 2017-05-18 09:39 | RADRPT ---
EXAM DATE/TIME: 05/18/2017 08:54 [facility] COMPARISON: No previous studies available for comparison. INDICATIONS : Pain from fall. MEDICAL HISTORY : None. SURGICAL HISTORY : None. ENCOUNTER: Initial ACUITY: 1 day PAIN SCORE: 10/10 LOCATION: Left humeral head. FINDINGS: There is comminuted fractures of the proximal humerus involving the anatomic neck, surgical neck, les ser tuberosity, and greater tuberosity. There is 6 mm separation of the fracture at the surgical nec k. The shaft of the humerus is intact. No radiopaque foreign bodies. CONCLUSION: Comminuted fractures of the proximal humeral head and neck. Hernandez Whitney MD on May 18, 2017 at 9:36 Board Certified Radiologist. This report was verified electronically.
[2017-05-18] MEDS ORDERED: PERC5TAB12 PO (10:50)
== END 2017-05-18 11:34 | disposition home or self-care (01) ==
LOC: NEPE 08:21
DX: S42.202A Unspecified fracture of upper end of left humerus, initial encounter for closed fracture (principal); W22.8XXA Striking against or struck by other objects, initial encounter; Y92.002 Bathroom of unspecified non-institutional (private) residence as the place of occurrence of the external cause
CPT/HCPCS: 73030; 73060; 96374; 96375; 99283

== ENCOUNTER 2017-05-19 20:56 | Emergency (ER) | payer MEDICARE ==
[2017-05-19 20:56] VITALS: O2SAT 75
[~2017-05-19 20:56] MED LIST changes: +PERC5TAB12 PO
[2017-05-19] MEDS ORDERED: EPINEPHrine HCL (1:10,000) 1 MG/10 ML SYRINGE IV ONE (20:57)
[2017-05-19] MEDS ORDERED: DEXTROSE 50% IN WATER 50 ML SYRINGE IV ONE (20:57)
[2017-05-19] MEDS ORDERED: SODIUM BICARBONATE 8.4% INJ 50 MEQ/50 ML SYR IV ONE (20:57)
--- NOTE | 2017-05-19 21:17 | PD ---
HPI Chief Complaint: cardiopulmonary arrest Time Seen by Provider: 21:14 Travel History International Travel<30 days: No Contact w/Intl Traveler<30days: No History of Present Illness HPI The patient is a 77 year old male who presents to the [facility] emergency department with a history of being found by a family member and cardiac arrest prior to ambulance services being called. The patient according to the patient' s family had not been feeling well since yesterday. The patient had a trip and a fall yesterday. The patient was seen in the emergency department and diagnosed with a proximal left humerus fracture. The patient was discharged home with a prescription for Percocet. The patient had not been eating well as he had been nauseated. His significant other reports that he was able to eat breakfast and lunch, however he felt flushed with indigestion and nausea and refused to eat dinner. Subsequently she found him unresponsive. The family denies him having any prior history of heart disease, however he does have a history from reviewing the electronic medical record of an abdominal aortic aneurysm and peripheral vascular disease. The patient also has a history of labile blood sugars related to his insulin-dependent diabetes mellitus. The patient on arrival to this facility has CPR in progress. The patient in total prior to arrival was given 7 doses of epinephrine IV, and 1 amp of bicarbonate. The patient was loaded with amiodarone and received a total of 450 mg IV. The patient's initial heart rhythm on mold filler and drainer was ventricular fibrillation. The patient in total was given 5 shocks in attempt at defibrillation. The patient did subsequently go into PEA. During the entire resuscitative process which was approximately 45 minutes prior to arrival patient has not had a return of pulse. [facility] Past Medical History Narrative Medical The patient's past medical history is obtained from discussion with the patient' s family and the electronic medical record and consists of arthritis, history of prostate cancer, hypertension, hyperlipidemia, insulin-dependent diabetes mellitus, chronic low back pain, peripheral vascular disease. Arthritis: Yes Blood Disorders: No Anxiety: No Depression: No Heart Rhythm Problems: No Cancer: Yes (prostate) Cardiovascular Problems: Yes (HTN) High Cholesterol: Yes Chest Pain: No Congestive Heart Failure: No Diabetes: Yes Endocrine: Yes Gastrointestinal Disorders: No Glaucoma: No Genitourinary: Yes (hx of prostate cancer) Hepatitis: No Hiatal Hernia: No Hypertension: Yes Immune Disorder: No Implanted Vascular Access Dvce: Yes Musculoskeletal: Yes (arthritis) Neurologic: No Psychiatric: No Reproductive: No Respiratory: No Integumentary: No Radiation Therapy: Yes (SEED IMPLANT) Thyroid Disease: No Past Surgical History Narrative Surgical The patient's past surgical history is significant for stent being placed in his legs bilaterally, history of cataract surgery, history of penile implant, history of seed implant placement related to prostate cancer, history of left knee replacement. Abdominal Surgery: No Body Medical Devices: PENILE IMPLANT Cardiac Surgery: Yes (STENTS PLACED BILAT GROINS) Ear Surgery: No Endocrine Surgery: No Eye Surgery: Yes (VEE CATARACT SX) Genitourinary Surgery: Yes (SEED IMPLANT, PENILE IMPLANT) Gynecologic Surgery: No Joint Replacement: Yes (left knee replacement) Neurologic Surgery: Yes (lower back) Oral Surgery: No Pacemaker: No Thoracic Surgery: No Other Surgery: Yes (LEFT KNEE) Social History Alcohol Use: No Tobacco Use: No Substance Use: No Allergies-Medications (Allergen,Severity, Reaction): Coded Allergies: No Known Allergies (Verified Adverse Reaction, Unknown, 05/18/17) Reported Meds & Prescriptions Reported Meds & Active Scripts Active Percocet (Oxycodone-Acetaminophen) 5-325 mg Tab 1 Tab PO Q6H PRN Walker with Front Wheels (Device) 1 Mis Mis 1 Ea .ROUTE DIRECTED Reported Lisinopril 40 Mg Tab 40 Mg PO DAILY Novolin N Inj (Insulin Human NPH) 1,000 Unit/10 Ml Vial 25 Units SQ BID Simvastatin 20 Mg Tab 20 Mg PO DAILY Review of Systems ROS Limitations: Intubated, Unresponsive Respiratory: No: Shortness of Breath Gastrointestinal: Positive: Nausea, Indigestion Genitourinary: No: Dysuria Musculoskeletal: Positive: Arthralgias, Pain (left shoulder) Physical Exam Narrative General: The patient is a well-developed well-nourished male, unresponsive on arrival with CPR in progress. Head and Neck exam: Head is normocephalic atraumatic. Eyes: extraocular motion testing is unable to be accomplished as the patient arrives unresponsive, pupils are dilated and unreactive to light. No corneal reflex noted. Nose: Midline septum with pink mucous membranes Mouth: Dentition unremarkable. Moist mucus membranes. Posterior oropharynx is not erythematous. No tonsillar hypertrophy. Uvula midline. Airway patent. Neck: No palpable lymphadenopathy. No nuchal rigidity. No thyromegaly. Cardiovascular: No cardiac activity is auscultated. Lungs: Equal breath sounds bilaterally being assisted with bag valve endotracheal tube. No wheezes, rhonchi, or rales. Abdomen: Soft, without tenderness to palpation in all 4 quadrants of the abdomen. No guarding, rebound, or rigidity. Extremities: No clubbing, cyanosis, or edema. The patient is noted to have ecchymosis to the left arm above the elbow related to recent left proximal humerus fracture. Right intraosseous access was in place in the tibia. Neurologic Exam: The patient arrives with a GCS of 3. Eyes 1. Motor 1. Verbal- 1. Skin Exam: Skin is warm and dry. MDM Medical Decision Making Medical Screen Exam Complete: Yes Emergency Medical Condition: Yes Medical Record Reviewed: Yes Differential Diagnosis Cardiopulmonary arrest caused by acute coronary syndrome, versus pulmonary embolism, versus fat embolism, versus cardiac arrhythmia, versus respiratory failure Narrative Course During the course of the patients emergency department visit, the patient had chest compressions continued with ACLS protocol continued. A bedside ultrasound was done by me of the patient's cardiac activity. The patient was noted to have no cardiac activity. The patient was given 2 additional doses of epinephrine every 3-5 minutes per ACLS protocol while chest compressions were continued and the patient was bagged by respiratory therapy. The patient was intubated prior to arrival by ambulance services. The patient had equal breath sounds being assisted by bag valve endotracheal tube. The patient had an OG tube placed by ambulance services prior to arrival. The patient continued to be unresponsive with no cardiac activity. The patient' s repeat assessment of his rhythm showed PEA, however no cardiac activity on ultrasound and no palpable pulse. The patient's time of was called at 21: 06. The patient's family was notified. A call has been placed out to the patient's primary care physician, Dr. Ledesma. I spoke to Dr. Rowell regarding this patient's case at 9:50 PM. He agreed that the patient's primary care physician will likely sign the certificate. He will pass the patient's information along to his primary care physician. Physician Communication Physician Communication I spoke to Dr. Rowell regarding this patient's case at 9:50 PM. He agreed that the patient's primary care physician will likely sign the certificate. He will pass the patient's information along to his primary care physician. Diagnosis Primary Impression: Cardiopulmonary arrest Disposition: 20 Condition: Yahaira Tijerina MD May 19, 2017 21:17
== END 2017-05-19 23:40 | disposition expired ==
LOC: NEPE 20:56 → NEPI 23:40
DX: I46.9 Cardiac arrest, cause unspecified (principal); R11.0 Nausea; M19.90 Unspecified osteoarthritis, unspecified site; I10 Essential (primary) hypertension; E78.00 Pure hypercholesterolemia, unspecified; E11.9 Type 2 diabetes mellitus without complications; Z85.46 Personal history of malignant neoplasm of prostate; Z79.4 Long term (current) use of insulin; Z79.899 Other long term (current) drug therapy
CPT/HCPCS: 92950; 96374; 96375; 99285; J0171